=== PATIENT | male | born 1960 | race Caucasian/White ===

== ENCOUNTER 2018-12-23 09:20 | Inpatient (IN) ==
--- NOTE | 2018-12-16 13:34 | Anesthesiology Consultation ---
Date of Service December 16, 2018 Assessment & Plan (1) Encounter for pre-operative examination: Patients surgery will be cancelled at this time because he did not show up for his PCP clearance and he was unable to get it rescheduled. Will be rescheduled at a later date after he is able to get in to see his PCP. Chart Review Chart Review: Patient seen in Pre Admission Testing Consults Requested medical (Dr. Victor (12/13)) Teaching & Discussion Pre-Anesthesia Teaching/Discussion Notes: Instructed NPO after midnight before surgery, except medications with 15 cc of water. Medication instructions provided according to the PAT guidelines. History Surgery Operation Date: 12/23/18 10:10 Proposed Procedures p Right Posterior Total Hip Arthroplasty - Joe Anaya DO Height/Weight Height: 5 ft 2 in Weight: 82.1 kg Allergies Allergy/AdvReac Type Severity Reaction Status Date / Time No Known Allergies Allergy Verified 12/12/18 12:21 Medications Home Medications Medication Instructions Recorded Confirmed Last Taken aspirin 81 mg PO QAM 12/12/18 12/12/18 Unknown atorvastatin 10 mg PO PM 12/12/18 12/12/18 Unknown ferrous sulfate [iron] 325 mg PO QAM 12/12/18 12/12/18 Unknown fluoxetine 40 mg PO QPM 12/12/18 12/12/18 Unknown levothyroxine [Synthroid] 25 mcg PO QAM 12/12/18 12/12/18 Unknown meloxicam 15 mg PO QAM 12/12/18 12/12/18 Unknown metoprolol succinate 100 mg PO QAM 12/12/18 12/12/18 Unknown multivitamin 1 tab PO QAM 12/12/18 12/12/18 Unknown omeprazole 40 mg PO QAM 12/12/18 12/12/18 Unknown Past Medical History Medical History Depression GERD (gastroesophageal reflux disease) History of pancreatitis History of torsion of testis Hyperlipidemia Hypertension Hypothyroidism Mild cerebral palsy Osteoarthritis Past Surgical History Surgical History H/O unilateral orchiectomy History of colonoscopy W/ POLYPECTOMY History of tonsillectomy Past Anesthesia History No Hx of Anesthesia Complications and No Family Hx of Anesthesia Complications History of PONV No Motion Sickness Screening History of Motion Sickness: No Social History Smoking Status: Never smoker Do You Dip or Chew Tobacco: No Hx Alcohol Use: No Hx Substance Use: No substance use type: does not use Exercise / Class Metabolic Activity II 4-5 Yardwork/Stairs/Walk up hill (Able to climb FOS (at least once a day). Denies CP or SOB. ) Review of Systems Patient denies chest pain, shortness of breath, dyspnea on exertion, cough, wheezing, palpitations. +Joint pain (hip) +acid reflux (controlled with medication) Physical Exam Vital Signs BP: 137/85 P: 59 R: 18 T: 97.5 SPO2: 96% on RA ENMT Thyromental Distance: < 3.5 Finger Breadths (3) Mallampati Class: II Neck normal visual inspection, trachea midline, + short neck and + thick neck; neck extension not limited Respiratory normal respiratory effort Auscultation: lungs clear to auscultation bilaterally Cardiovascular Rate/Rhythm: regular rate and regular rhythm Heart Sounds: no murmur Vessels: no carotid bruit Neurologic moves all extremities Psychiatric Orientation: alert and oriented x 3 Testing Electrocardiogram Date: 12/16/18 Findings: + SB @ (57) Chest X-Ray Date: 12/16/18 Findings: + NAD FINDINGS: The lungs are clear. Cardiac silhouette is normal in size. No pleural effusions. No pneumothorax. IMPRESSION: No acute process. Stress Test Date: 11/01/17 Type: DSE Resting EF: 55-59% Resting LV Function: normal Resting RWMA: + none Valvular Disease: no significant valvular disease This stress ECHO is negative for inducible ischemia. There is no significant valvular heart disease. The stress EKG response showed no evidence of ischemia. No arrhythmias were noted with stress. Sinus rhythm was noted at rest. ST segments were normal at rest. The test was terminated due to target heart rate being achieved. The HR and BP response to pharmacologic stress was normal. No symptoms were noted. The LV wall thickness is mildly increased (concentric). Laboratory Results 12/16/18 13:17 12/16/18 13:17 Blood Type O Positive 12/16/18 13:17 Antibody Screen NEGATIVE 12/16/18 13:17 PT 10.8 Seconds (9.0-12.0) 12/16/18 13:17 INR 1.1 (0.9-1.1) 12/16/18 13:17 APTT 26.4 Seconds (21.0-31.0) 12/16/18 13:17 Hemoglobin A1c 5.5 % (4.5-5.6) 12/16/18 13:17 Urine Color Yellow 12/16/18 Unknown Urine Appearance Clear (Clear) 12/16/18 Unknown Urine pH 5.0 (4.5-7.5) 12/16/18 Unknown Ur Specific [place] 1.027 (1.000-1.030) 12/16/18 Unknown Urine Protein Negative (Negative) 12/16/18 Unknown Urine Glucose (UA) Negative (Negative) 12/16/18 Unknown Urine Ketones 2+ (Negative) H 12/16/18 Unknown Urine Nitrite Negative (Negative) 12/16/18 Unknown Ur Leukocyte Esterase Negative (Negative) 12/16/18 Unknown 12/16/18 Unknown Urine Culture - Final Urine,Clean Catch Three types or organisms present, all moderate counts probable skin daria. No further identifications or sensitivities to follow.
--- NOTE | 2018-12-16 13:44 | PAT Medication Instructions ---
Medication Instructions Date of Service December 16, 2018 Home Medications aspirin 81 mg PO QAM atorvastatin 10 mg PO PM ferrous sulfate [iron] 325 mg PO QAM fluoxetine 40 mg PO QPM levothyroxine [Synthroid] 25 mcg PO QAM meloxicam 15 mg PO QAM metoprolol succinate 100 mg PO QAM multivitamin 1 tab PO QAM omeprazole 40 mg PO QAM ASK your surgeon for instructions meloxicam 15 mg PO QAM DO NOT take the morning of surgery ferrous sulfate [iron] 325 mg PO QAM multivitamin 1 tab PO QAM Take morning of surgery With a small sip of water, OTHERWISE NOTHING TO EAT OR DRINK AFTER MIDNIGHT: aspirin 81 mg PO QAM levothyroxine [Synthroid] 25 mcg PO QAM metoprolol succinate 100 mg PO QAM omeprazole 40 mg PO QAM Take evening before surgery atorvastatin 10 mg PO PM fluoxetine 40 mg PO QPM Other Notes If you have any questions please call us at [phone] or [phone] or [phone] or [phone]
[2018-12-16 14:23] LABS: Basophils # (auto) 0.02 K/uL (0-0.2); Basophils % (auto) 0.2 %; Eosinophils # (auto) 0.24 K/uL (0-0.5); Eosinophils % (auto) 2.9 %; Hematocrit (blood only) 46.4 % (42-52); Hemoglobin 15.2 g/dL (14.0-18.0); Immature Granulocytes # (auto) 0.01 K/uL (0.00-0.02); Immature Granulocytes % (auto) 0.1 %; Lymphocytes # (auto) 1.14 K/uL (1.2-3.4); Lymphocytes % (auto) 13.5 %; Mean Corpuscular Hgb Conc 32.8 g/dL (32-36); Mean Corpuscular Volume 88.5 fL (80-100); Mean Platelet Volume 9.8 fL (7.4-10.4); Monocytes # (auto) 0.82 K/uL (0.11-0.59); Monocytes % (auto) 9.7 %; Neutrophils # (auto) 6.19 K/uL (1.4-6.5); Neutrophils % (auto) 73.6 %; Platelet Count 266 K/uL (130-400); RDW Coefficient of Variation 14.8 % (11.5-14.5); RDW Standard Deviation 47.7 fL (36.4-46.3); Red Blood Count 5.24 M/uL (4.7-6.1); White Blood Count 8.42 K/uL (4.8-10.8)
--- NOTE | 2018-12-16 14:30 | XRay Report ---
XR chest Pre-admission PA/Lat HISTORY: Preop. COMPARISON: None. FINDINGS: The lungs are clear. Cardiac silhouette is normal in size. No pleural effusions. No pneumot horax. IMPRESSION: No acute process. Electronically signed by: Dominick Stevens M.D. 12/16/2018 2:29 PM
[2018-12-16 14:32] LABS: Albumin Level 3.5 gm/dl (3.4-5.0); BUN Creatinine Ratio 26.5 (10-20); Calcium 9.3 mg/dl (8.5-10.1); Creatinine Clr Calc Pharmacy 111.2 ml/min; Est GFR (African American) 122.9; Potassium 3.7 mmol/L (3.5-5.1)
[2018-12-16 14:41] LABS: Appearance Urine Clear (Clear); Bilirubin Urine Negative (Negative); Blood Urine Negative (Negative); Color Urine Yellow; Glucose Urine UA Negative (Negative); Ketones Urine 2+ (Negative); Leukocyte Esterase Urine Negative (Negative); Nitrite Urine Negative (Negative); Protein Urine Negative (Negative); Specific Gravity Urine 1.027 (1.000-1.030); Urobilinogen Urine Negative (Negative)
[2018-12-16 14:43] LABS: INR 1.1 (0.9-1.1); Partial Thromboplastin Time 26.4 Seconds (21.0-31.0); Prothrombin Time 10.8 Seconds (9.0-12.0)
[2018-12-17 05:50] LABS: Estimated Average Glucose 111 mg/dl; Hemoglobin A1C 5.5 % (4.5-5.6)
--- NOTE | 2018-12-22 13:22 | History & Physical Report ---
Date of Service December 22, 2018 Assessment & Plan (1) Degenerative joint disease (DJD) of hip: I have indicated the patient for right posterior total hip replacement. The risks, benefits and complications of surgery were explained to the patient which include but not limited to infection, acute blood loss, DVT/PE, injury to nerves, vessels, bone, soft tissue, arthrofibrosis, chronic pain, failure of the prosthesis, hip dislocation, leg length discrepancy, need for additional surgery, cardiac and pulmonary events and . The patient wished to proceed with surgery and informed consent was obtained at this time. We will plan for ASA BID post-operatively for DVT prophylaxis. Upon discharge the patient will be discharged home with home health services vs SNF. Appropriate clearances by PCP were obtained. History of Present Illness Chief Complaint: Right hip pain/djd Primary Care Provider: Álvaro Victor DO The patient is a 58 year old male who presents with complaints of severe right hip pain and DJD. The patient has failed outpatient conservative treatments to this point which included NSAIDS, PT, home exercise/walking program. The patient's pain and limited function have progressed to the point where they severely hinder their activities of daily living and they no longer tolerate exercise programs. They are requesting to proceed with total hip replacement surgery. Allergies Allergy/AdvReac Type Severity Reaction Status Date / Time No Known Allergies Allergy Verified 12/23/18 10:04 Home Medications Home Medications Medication Instructions Recorded Confirmed Type aspirin 81 mg PO QAM 12/12/18 12/23/18 History atorvastatin 10 mg PO PM 12/12/18 12/23/18 History ferrous sulfate [iron] 325 mg PO QAM 12/12/18 12/23/18 History fluoxetine 40 mg PO QPM 12/12/18 12/23/18 History levothyroxine [Synthroid] 25 mcg PO QAM 12/12/18 12/23/18 History meloxicam 15 mg PO QAM 12/12/18 12/23/18 History metoprolol succinate 100 mg PO QAM 12/12/18 12/23/18 History multivitamin 1 tab PO QAM 12/12/18 12/23/18 History omeprazole 40 mg PO QAM 12/12/18 12/23/18 History Past Med/Surg History Medical History Depression GERD (gastroesophageal reflux disease) History of pancreatitis History of torsion of testis Hyperlipidemia Hypertension Hypothyroidism Mild cerebral palsy Osteoarthritis Surgical History H/O unilateral orchiectomy History of colonoscopy W/ POLYPECTOMY History of tonsillectomy Family History Mother Family history of diabetes mellitus Sister Family history of diabetes mellitus Social History Preferred Language: Japanese Communication Ability: Effective Pumper Helper Required: No Beliefs That Will Affect Care: None Current Living Situation: Alone Other Information That Helps Us Care for You: No Feels Safe at Home: Yes Safety Concerns: Feels Safe At This Time Smoking Status: Never smoker Hx Alcohol Use: No Hx Substance Use: No Review of Systems All systems reviewed & are unremarkable except as noted in HPI & below Physical Exam Physical Exam: RLE NVSI +EHL/FHL/TA/GS SILT grossly, +2 DP pulse, compartments soft NT, limited painful ROM of the hip. Constitutional: WD/WN, vitals as above Eyes: PERRL, conjunctivae normal, anicteric sclerae ENMT: external ear and nose normal, oropharynx normal Neck: trachea midline, no thyromegaly Respiratory: normal respiratory effort, lungs clear to auscultation Cardiovascular: RRR, no murmur, no edema Gastrointestinal (Abdomen): normal bowel sounds, soft, nontender, no hepatosplenomegaly Musculoskeletal: no cyanosis or clubbing, extremities motor strength 5/5 Skin: no rashes, warm and dry Neurologic: patellar DTR's 2+ bilat, sensation intact Psychiatric: A+Ox3, euthymic affect Lymphatic: no cervical or axillary lymphadenopathy Results & Data Diagnostic Findings Multiple views of the hip demonstrates severe DJD with complete loss of the joint space, lateral subluxation of the femoral head. +osteophytes, +sclerosis, +subchondral cysts.
[~2018-12-23 09:20] MED LIST: ACETAMINOPHEN 500 MG TAB PO SCH; BUPIVACAINE 0.5 % 5 MG/1 ML PF 10ML VIAL ONE; CEFAZOLIN 2000MG 2,000 MG/15 ML SYR IV SCH; CeleBREX 200 MG CAP PO SCH; FAMOTIDINE 20 MG TAB PO SCH; GABAPENTIN 300 MG PO SCH; ROPIVACAINE 0.5% HCL/PF 150 MG, BUPIVACAINE 0.5% MPF 30 ML, EPINEPHrine 30MG/30ML (OR U... INFIL SCH; TRANEXAMIC ACID 1,000 MG **IV Intra-op IV SCH; TRANEXAMIC ACID 1,000 MG **IV Pre-op IV SCH; dexAMETHasone 4 MG TAB PO SCH
[2018-12-23] MEDS ORDERED: MIDAZOLAM HCL 1 MG/ML 2ML VIAL ONE (09:30)
[2018-12-23] MEDS: LACTATED RINGER'S 1,000 ML IV SCH ×2 (10:08→13:58)
[2018-12-23] MEDS ORDERED: ORTHO JOINT ANESTHETIC ONE (10:11)
[2018-12-23] MEDS ORDERED: BACITRACIN INJ 50,000 UNIT VIAL ONE (10:11)
[2018-12-23] MEDS ORDERED: POVIDONE-IODINE OP SOLN 30 ML BTL ONE (10:11)
--- NOTE | 2018-12-23 10:15 | History & Physical Bridge Note ---
Date of Service December 23, 2018 History & Physical Bridge Note I have examined the patient, reviewed the History & Physical and in the interval since the performance of the History & Physical I have noted the following changes of clinical significance: no changes noted
[2018-12-23] MEDS ORDERED: FAMOTIDINE 20 MG TAB ONE (10:19)
[2018-12-23] MEDS ORDERED: ACETAMINOPHEN 500 MG TAB ONE (10:19)
[2018-12-23] MEDS ORDERED: CeleBREX 200 MG CAP ONE (10:19)
[2018-12-23] MEDS ORDERED: dexAMETHasone 4 MG TAB PO ONE (10:19)
[2018-12-23] MEDS ORDERED: GABAPENTIN 300 MG CAP ONE (10:19)
[2018-12-23] MEDS ORDERED: HYDROmorphone INJ 1 MG/ML SYRINGE IV PRN (10:24)
[2018-12-23] MEDS ORDERED: PHENYLEPHRINE 100MCG/ML 5ML SYR IV PRN (10:24)
[2018-12-23] MEDS ORDERED: KETOROLAC 30 MG/ML VIAL IV PRN (10:24)
[2018-12-23] MEDS ORDERED: ePHEDrine sulfate 50 MG/ML AMP IV PRN (10:24)
[2018-12-23] MEDS ORDERED: ONDANSETRON INJ 2 MG/ML 2 ML VIAL IV PRN ×2 (10:24→14:09)
[2018-12-23] MEDS ORDERED: ATROPINE SULFATE 0.1 MG/ML 10ML SYR IV PRN (10:24)
[2018-12-23] MEDS ORDERED: fentaNYL citrate 100 MCG/2 ML VIAL ONE (11:34)
[2018-12-23] MEDS ORDERED: SODIUM CHLORIDE 0.9% INJ 10 ML VIAL ONE (11:37)
[2018-12-23] MEDS ORDERED: LIDOCAINE HCL 2% 2 ML VIAL/AMP(20MG/ML) INFIL ONE (11:37)
[2018-12-23] MEDS ORDERED: PROPOFOL IV EMULSION 10 MG/ML 20 ML VIAL IV ONE (11:37)
[2018-12-23] MEDS ORDERED: PHENYLEPHRINE HCL 10 MG/ML VIAL ONE (11:37)
[2018-12-23] MEDS ORDERED: ePHEDrine sulfate 50 MG/ML AMP ONE (11:37)
--- NOTE | 2018-12-23 12:45 | Post Operative Brief Note ---
Immediate Post Op Note v1 Date of Surgery December 23, 2018 Pre & Post Diagnosis Operation Date: 12/23/18 09:50 Pre-Op Diagnosis: Degenerative joint disease right hip Post-Op Diagnosis: Degenerative joint disease right hip Procedure Operation Date: 12/23/18 09:50 Actual Procedures p Right Posterior Total Hip Arthroplasty(Right) - Joe Anaya DO Surgeon Joe Anaya DO Knockup Worker Simone Bill Estimated Blood Loss 100 Findings Consistent with Post-Op Diagnosis Fluids 1500 cc LR Specimens femoral head Anesthesia Type Spinal MAC Complications none Disposition Disposition: Recovery Room Overlapping Procedure I was present for: the critical portions of procedure. I was immediately available: during the entire case. Back up surgeon: was not required during procedure.
--- NOTE | 2018-12-23 12:57 | Operative Report ---
Post Operative Report Pre & Post Diagnosis Operation Date: 12/23/18 09:50 Pre-Op Diagnosis: Degenerative joint disease right hip Post-Op Diagnosis: Degenerative joint disease right hip Procedure Operation Date: 12/23/18 09:50 Actual Procedures p Right Posterior Total Hip Arthroplasty(Right) - Joe Anaya DO Surgeon Joe Anaya DO Rn Transfer Simone Bill Estimated Blood Loss 100 Findings Consistent with Post-Op Diagnosis Fluids 1500 cc LR Specimens femoral head Anesthesia Type Spinal MAC Complications none Disposition Disposition: Recovery Room Indications The patient is a 58-year-old male who presents with severe progressive right hip DJD who has failed outpatient conservative treatments. I indicated the patient for a total hip replacement and the risks and benefits were explained in detail which included but not limited to infection, bleeding, blood clot, damage to surrounding bone, nerves, vessels, soft tissue, hip dislocation, failure of the prosthesis, leg length discrepancy, need for additional surgery and . The patient agreed to proceed with replacement of the hip and informed consent was obtained. Appropriate clearances were obtained. Description of Procedure Following induction of adequate spinal anesthesia, the patient was transferred to the OR table and placed in lateral decubitus position with left hip down. The right hip was prepped and draped in the typical sterile fashion and a posterolateral/Gilberto-Langenbeck incision was made. Subcutaneous tissue was sharply dissected. Electrocautery was utilized for hemostasis. The fascia was incised throughout the length of the wound and retracted with the Charnley retractor. The bursa was taken down and the short external rotators were identified. The piriformis was tagged with #1 Vicryl. The short external rotators and capsule were divided from the posterior aspect of the femur using electrocautery. The posterior capsule was tagged with #1 Vicryl. Both external rotators and posterior capsule were swept posterior and protected, along with protecting the sciatic nerve. The hip was dislocated by flexion and internally rotation in a controlled manner and exposure of the femoral neck was gained with an old-style Hohmann and a blunt cobra retractor. A femoral cutting guide was utilized for making the appropriate level femoral neck cut with reciprocating saw. The femoral head was removed, measured and reserved on the back table. Next, attention was turned to the acetabulum. A posterior and anterior offset retractor was placed to gain adequate exposure. Acetabular labrum as well as posterior capsule elements were removed using electrocautery and forceps. Fovea centralis was cleared of all soft tissue. Sequential reaming was performed starting at 44 mm and carried up to a 49 mm and decision was made to proceed with impaction of a 50 mm trabecular metal cup. This was impacted and held using a single 35 mm bone screw. The trial acetabular liner was placed at this time. Next, attention was turned to the proximal femur where a Bovie and pickup was used to further clear short external rotators from their insertion on the femur. Box osteotome and canal finder was used to gain access to the femoral canal and the lateral reamer on power was used to further open the proximal lateral canal. Sequentially rasping was carried up to a 9 which gave good fit and fill of the proximal femur. A trial reduction was carried out with a high offset femoral neck component a 36- 3.5 mm femoral head. The trial reduction was stable in all degrees of rotation with no [id number] impingement. The hip was dislocated, trial components were removed and access to the acetabulum was re-established. The trial liner was removed and the cup was irrigated to ensure all debris was removed. The final acetabular liner was inserted and properly seated in the cup. Access to the femur was once more gained and the size 9 femoral stem with high offset was impacted into position. The hip was once more assessed with the 36-3.5 mm femoral head. Stability was accessed and found to be excellent with equal leg lengths. The hip was dislocated for the last time and the final 36-3.5 ceramic femoral head was impacted in place and the hip was reduced. Range of motion was checked once again and found to be stable. The wound was copiously irrigated with sterile saline solution. The heidi-incisional soft tissue was injected utilizing [place] ortho mix which includes a combination of Ropivicaine 0.5% 150mg, Bupivicaine 0.5%/Epinephrine 1:200,000 30ml, Toradol 30mg, Dexamethasone 4mg, Ketamine 10mg, Clonidine 100mcg and NSS 30ml Orthomix solution. The piriformis, external rotators and capsule were repaired to the greater trochanter through bone tunnels using #5 FiberWire. The fascia was closed using #1 Vicryl, subcutaneous tissue was closed using 2-0 Vicryl, and skin was closed with 3-0 V-lock suture and Dermabond Prineo. Sterile dressings were applied which included katya, 4x4s and tegaderm adhesive dressing. The patient tolerated the procedure well and was transported to PACU in stable condition. Due to the complex nature of the procedure, the entire surgery was performed with the operational assistance of Simone Bill PA-C. The yard assistant, under direct supervision, was involved in the actual performance of all aspects of the surgical procedure including patient positioning, hemostasis, tissue retraction, instrument management and wound closure. I attest to the content of the Intraoperative Record and any orders documented therein. Any exceptions are noted below.
--- NOTE | 2018-12-23 13:44 | XRay Report ---
XR hip 1V RT w pelvis CLINICAL HISTORY: Postop hip arthroplasty COMPARISON: None. DISCUSSION: There are postsurgical changes of a total right hip arthroplasty. The acetabular and femo ral components appear well seated. There is aortic the soft tissues consistent with recent surgery. T here are overlying skin queta. There is no acute fracture. There is no dislocation. Mild osteoarthr itic changes are present on the left. IMPRESSION: Postsurgical changes of a total right hip arthroplasty. No evidence of dislocation. Electronically signed by: Carlos Novak M.D. 12/23/2018 1:43 PM
--- NOTE | 2018-12-23 13:51 | Anesthesiology Progress Note ---
Date of Service December 23, 2018 Anesthesia Post Procedure Vital Signs Vital Signs: Temp Pulse Pulse Resp BP Pulse Ox 12/23/18 13:45 76 19 119/77 98 12/23/18 13:35 67 20 97/52 L 97 12/23/18 13:25 69 18 100/50 L 95 12/23/18 13:15 78 20 109/69 96 12/23/18 13:09 36.5 C 65 15 119/73 98 12/23/18 10:06 36.5 C 70 20 150/91 H 96 Pain Intensity Right Hip: Pain Intensity: 0 Notes Mental Status: alert / awake / arousable Patient Amnestic to Procedure: Yes Nausea / Vomiting: adequately controlled Pain: adequately controlled Airway Patency, RR, SpO2: stable & adequate BP & HR: stable & adequate Hydration State: stable & adequate Neuraxial Anesthesia: was administered and sensory block is resolving Anesthetic Complications: no major complications apparent
--- NOTE | 2018-12-23 13:58 | Orthopedic Progress Note ---
Date of Service December 23, 2018 Assessment & Plan (1) Degenerative joint disease (DJD) of hip: s/p R posterior DANIA -ancef x 24 -DVT ppx: ASA BID, SCDs, TEDS -WBAT RLE -Posterior hip precautions -PO XR: Multiple views of the right hip demonstrate a well aligned well fixed orthopedic prosthesis without evidence of loosening, subsidence fracture or dislocation. -A.m. labs -DC planning SNF Subjective Postoperative progress note Patient seen in PACU, laying comfortably, denies pain, still feeling the effects of spinal anesthesia. Physical Exam Vital Signs (Past 24 Hours): Last Vital Signs Temp 36.5 C 12/23/18 13:09 Pulse 76 12/23/18 13:45 Resp 19 12/23/18 13:45 BP 119/77 12/23/18 13:45 Pulse Ox 98 12/23/18 13:45 Physical Exam: RLE physical exam is limited secondary to spinal anesthesia, +2 dorsalis pedis pulse, compartment soft nontender, dressing is clean dry and intact. Constitutional: WD/WN, vitals as above Eyes: PERRL, conjunctivae normal, anicteric sclerae ENMT: external ear and nose normal, oropharynx normal Neck: trachea midline, no thyromegaly Respiratory: normal respiratory effort, lungs clear to auscultation Cardiovascular: RRR, no murmur, no edema Gastrointestinal (Abdomen): normal bowel sounds, soft, nontender, no hepatosplenomegaly Skin: no rashes, warm and dry Psychiatric: A+Ox3, euthymic affect Lymphatic: no cervical or axillary lymphadenopathy
[2018-12-23] MEDS ORDERED: MAGNESIUM HYDROXIDE SUSP 30 ML UDC PO PRN (14:09)
[2018-12-23] MEDS ORDERED: NALOXONE HCL 0.4 MG/1 ML VIAL/CARP IV PRN (14:09)
[2018-12-23] MEDS ORDERED: BISACODYL 10 MG SUPP PR PRN (14:09)
[2018-12-23] MEDS ORDERED: METOCLOPRAMIDE HCL INJ 5 MG/ML 2 ML VIAL IV PRN (14:09)
[2018-12-23] MEDS ORDERED: OXYCODONE HCL IR 5 MG TAB (IMMEDIATE RELEASE) PO PRN (14:09)
[2018-12-23] MEDS ORDERED: HYDROmorphone INJ 0.5 MG/0.5 ML SYR IV PRN (14:09)
[2018-12-23] MEDS: SODIUM CHLORIDE 0.9% 1000ML 1,000 ML IV SCH ×2 (14:36→23:45)
[2018-12-23] MEDS: KETOROLAC 30 MG/ML VIAL IV SCH ×2 (14:38→21:32)
[2018-12-23] MEDS: CEFAZOLIN 2000MG 2,000 MG/15 ML SYR IV SCH ×2 (16:02→22:40)
[2018-12-23] MEDS: ACETAMINOPHEN 500 MG TAB PO SCH ×2 (16:02→22:40)
[2018-12-23] MEDS: ASPIRIN 325 MG ECTAB PO SCH (21:32)
[2018-12-23] MEDS: FLUOXETINE HCL 20 MG CAP PO SCH (21:32)
[2018-12-23] MEDS: ATORVASTATIN 10 MG TAB PO SCH (21:32)
[2018-12-23] MEDS: SENNA 8.6 MG TAB PO SCH (21:33)
[2018-12-23] MEDS: DOCUSATE SODIUM 100 MG CAP PO SCH (21:37)
[2018-12-24] MEDS: KETOROLAC 30 MG/ML VIAL IV SCH ×2 (02:53→08:28)
[2018-12-24] MEDS: ACETAMINOPHEN 500 MG TAB PO SCH ×3 (05:46→20:40)
[2018-12-24] MEDS: LEVOTHYROXINE SODIUM 25 MCG TABLET PO SCH (05:47)
[2018-12-24 07:04] LABS: Basophils # (auto) 0.01 K/uL (0-0.2); Basophils % (auto) 0.1 %; Hematocrit (blood only) 37.9 % (42-52); Hemoglobin 12.4 g/dL (14.0-18.0); Immature Granulocytes # (auto) 0.04 K/uL (0.00-0.02); Immature Granulocytes % (auto) 0.2 %; Lymphocytes # (auto) 1.39 K/uL (1.2-3.4); Lymphocytes % (auto) 7.8 %; Mean Corpuscular Hgb Conc 32.7 g/dL (32-36); Mean Corpuscular Volume 87.7 fL (80-100); Mean Platelet Volume 9.3 fL (7.4-10.4); Monocytes # (auto) 0.76 K/uL (0.11-0.59); Monocytes % (auto) 4.3 %; Neutrophils # (auto) 15.51 K/uL (1.4-6.5); Neutrophils % (auto) 87.6 %; Platelet Count 251 K/uL (130-400); RDW Coefficient of Variation 14.5 % (11.5-14.5); RDW Standard Deviation 46.5 fL (36.4-46.3); Red Blood Count 4.32 M/uL (4.7-6.1); White Blood Count 17.71 K/uL (4.8-10.8)
[2018-12-24 07:37] LABS: Calcium 8.3 mg/dl (8.5-10.1); Creatinine Clr Calc Pharmacy 94.5 ml/min; Est GFR (African American) 115.5; Est GFR (Non-African American) 99.7
--- NOTE | 2018-12-24 08:07 | Anesthesiology Progress Note ---
Date of Service December 24, 2018 Anesthesia Post Procedure Vital Signs Vital Signs: Temp Pulse Pulse Pulse Resp BP Pulse Ox 12/24/18 06:55 36.4 C L 53 L 16 122/80 98 12/24/18 03:20 36.4 C L 67 16 126/74 94 12/23/18 23:46 36.4 C L 79 18 124/81 95 12/23/18 19:33 36.8 C 99 H 18 130/84 95 12/23/18 17:10 36.3 C L 104 H 16 132/83 95 12/23/18 16:10 36.5 C 88 17 139/90 94 12/23/18 14:39 59 L 18 114/60 93 12/23/18 14:35 71 18 132/86 95 12/23/18 14:09 36.5 C 67 67 16 120/76 96 12/23/18 13:55 76 20 114/65 96 12/23/18 13:45 76 19 119/77 98 12/23/18 13:35 67 20 97/52 L 97 12/23/18 13:25 69 18 100/50 L 95 12/23/18 13:15 78 20 109/69 96 12/23/18 13:09 36.5 C 65 15 119/73 98 12/23/18 10:06 36.5 C 70 20 150/91 H 96 Pain Intensity Right Hip: Pain Intensity: 0 Notes Mental Status: alert / awake / arousable Nausea / Vomiting: adequately controlled Pain: adequately controlled Airway Patency, RR, SpO2: stable & adequate BP & HR: stable & adequate Hydration State: stable & adequate Neuraxial Anesthesia: was administered and sensory block resolved Anesthetic Complications: no major complications apparent and Pt Satisfied with anesthetic care
[2018-12-24] MEDS: FERROUS SULFATE 325 MG TAB PO SCH (08:27)
[2018-12-24] MEDS: MULTIVITAMIN TAB PO SCH (08:27)
[2018-12-24] MEDS: ASPIRIN 325 MG ECTAB PO SCH ×2 (08:27→20:36)
[2018-12-24] MEDS: METOPROLOL SUCC 50MG EXT REL TAB PO SCH (08:27)
[2018-12-24] MEDS: DOCUSATE SODIUM 100 MG CAP PO SCH ×2 (08:37→20:39)
[2018-12-24] MEDS ORDERED: CALCIUM CARBONATE 500 MG CHEWABLE TAB PO PRN (10:10)
--- NOTE | 2018-12-24 10:45 | Orthopedic Progress Note ---
Date of Service December 24, 2018 Assessment & Plan (1) Degenerative joint disease (DJD) of hip: s/p R posterior DANIA POD#2 -ancef x 24 -DVT ppx: ASA BID, SCDs, TEDS -WBAT RLE -Posterior hip precautions -PO XR: Multiple views of the right hip demonstrate a well aligned well fixed orthopedic prosthesis without evidence of loosening, subsidence fracture or dislocation. -A.m. labs hgb 12.4 -DC planning SNF Subjective Post Operative Progress Note Patient seen sitting in chair, comfortable, denies complaints, pain well controlled, no acute issues. Physical Exam Vital Signs (Past 24 Hours): Last Vital Signs Temp 36.4 C L 12/24/18 06:55 Pulse 65 12/24/18 08:30 Resp 16 12/24/18 06:55 BP 122/80 12/24/18 06:55 Pulse Ox 98 12/24/18 06:55 Physical Exam: RLE NVSI +EHL/FHL/TA/GS SILT grossly, +2 DP pulse, compartments soft NT, dressing cdi. Constitutional: WD/WN, vitals as above
[2018-12-24] MEDS: PANTOprazole 40 MG TAB PO SCH ×2 (10:46→20:36)
[2018-12-24] MEDS: LACTATED RINGER'S 1,000 ML IV SCH (11:16)
[2018-12-24] MEDS: CeleBREX 200 MG CAP PO SCH (20:35)
[2018-12-24] MEDS: ATORVASTATIN 10 MG TAB PO SCH (20:36)
[2018-12-24] MEDS: FLUOXETINE HCL 20 MG CAP PO SCH (20:36)
[2018-12-24] MEDS: SENNA 8.6 MG TAB PO SCH (20:37)
[2018-12-25] MEDS: LEVOTHYROXINE SODIUM 25 MCG TABLET PO SCH (05:49)
[2018-12-25] MEDS: ACETAMINOPHEN 500 MG TAB PO SCH ×2 (05:49→14:36)
[2018-12-25 07:58] LABS: Basophils # (auto) 0.03 K/uL (0-0.2); Basophils % (auto) 0.2 %; Eosinophils # (auto) 0.24 K/uL (0-0.5); Eosinophils % (auto) 1.7 %; Hematocrit (blood only) 40.6 % (42-52); Hemoglobin 13.3 g/dL (14.0-18.0); Immature Granulocytes # (auto) 0.04 K/uL (0.00-0.02); Immature Granulocytes % (auto) 0.3 %; Lymphocytes # (auto) 1.54 K/uL (1.2-3.4); Lymphocytes % (auto) 11.1 %; Mean Corpuscular Hgb Conc 32.8 g/dL (32-36); Mean Platelet Volume 9.3 fL (7.4-10.4); Monocytes # (auto) 1.22 K/uL (0.11-0.59); Monocytes % (auto) 8.8 %; Neutrophils # (auto) 10.78 K/uL (1.4-6.5); Neutrophils % (auto) 77.9 %; Platelet Count 285 K/uL (130-400); RDW Standard Deviation 48.9 fL (36.4-46.3); Red Blood Count 4.56 M/uL (4.7-6.1); White Blood Count 13.85 K/uL (4.8-10.8)
[2018-12-25] MEDS: FERROUS SULFATE 325 MG TAB PO SCH (07:58)
[2018-12-25] MEDS: PANTOprazole 40 MG TAB PO SCH (07:58)
[2018-12-25] MEDS: MULTIVITAMIN TAB PO SCH (07:58)
[2018-12-25] MEDS: METOPROLOL SUCC 50MG EXT REL TAB PO SCH (07:58)
[2018-12-25] MEDS: DOCUSATE SODIUM 100 MG CAP PO SCH (07:59)
[2018-12-25] MEDS: ASPIRIN 325 MG ECTAB PO SCH (07:59)
[2018-12-25] MEDS: CeleBREX 200 MG CAP PO SCH (07:59)
[2018-12-25 08:31] LABS: BUN Creatinine Ratio 17.4 (10-20); Calcium 8.6 mg/dl (8.5-10.1); Creatinine Clr Calc Pharmacy 88.8 ml/min; Est GFR (African American) 112.7; Est GFR (Non-African American) 97.2; Potassium 3.6 mmol/L (3.5-5.1)
--- NOTE | 2018-12-25 08:43 | Progress Note ---
DATE: 12/25/2018 SUBJECTIVE: The patient is postop day 2 status post right total hip arthroplasty by Dr. Anaya. He is currently sitting up in his chair at the bedside and had just finished eating breakfast. The patient is in good spirits and has good pain control today. He states that he has a small amount of pain last night; however, that has resolved and he is doing well. He denies any shortness of breath, chest pain, lightheadedness and has no complaints at this time. OBJECTIVE: Prevena dressing is clean, dry and intact and functioning well. There is no overt drainage noted. There is some mild bruising around the dressing area consistent with surgery. Thigh is mildly swollen, but soft and nontender. Calves were soft, nontender. Neurovascular is intact. Toes were mobile. Hip appears located. Hgb 13.3 ASSESSMENT: Postop day 2 status post right total hip arthroplasty. PLAN: Continue PT, OT protocols. Continue DVT prophylaxis with aspirin b.i.d., SCDs and LAUREEN hose and continue current pain regimen. The patient is being slated for a rehab facility versus [facility] facility and we will wait to hear on authorization from case management. SAMANTHA
--- NOTE | 2018-12-25 12:00 | Orthopedic Progress Note ---
Date of Service December 25, 2018 Assessment & Plan (1) Degenerative joint disease (DJD) of hip: s/p R posterior DANIA POD#2 -ancef x 24 -DVT ppx: ASA BID, SCDs, TEDS -WBAT RLE -Posterior hip precautions -PO XR: Multiple views of the right hip demonstrate a well aligned well fixed orthopedic prosthesis without evidence of loosening, subsidence fracture or dislocation. -A.m. labs hgb 13.3 -DC planning SNF today vs tomorrow pending approval. Subjective Post Operative Progress Note Patient seen sitting in chair, comfortable, denies complaints, pain well controlled, no acute issues. Physical Exam Vital Signs (Past 24 Hours): Last Vital Signs Temp 36.5 C 12/25/18 05:38 Pulse 72 12/25/18 05:38 Resp 22 12/25/18 05:38 BP 136/74 12/25/18 05:38 Pulse Ox 98 12/25/18 05:38 Physical Exam: RLE NVSI +EHL/FHL/TA/GS SILT grossly, +2 DP pulse, compartments soft NT, dressing cdi. Constitutional: WD/WN, vitals as above Eyes: PERRL, conjunctivae normal, anicteric sclerae ENMT: external ear and nose normal, oropharynx normal Neck: trachea midline, no thyromegaly Respiratory: normal respiratory effort, lungs clear to auscultation Cardiovascular: RRR, no murmur, no edema Gastrointestinal (Abdomen): normal bowel sounds, soft, nontender, no hepatosplenomegaly Musculoskeletal: no cyanosis or clubbing, extremities motor strength 5/5 Skin: no rashes, warm and dry Neurologic: patellar DTR's 2+ bilat, sensation intact Psychiatric: A+Ox3, euthymic affect Lymphatic: no cervical or axillary lymphadenopathy
--- NOTE | 2018-12-25 22:41 | Discharge Summary ---
Date of Service December 25, 2018 Admission HPI Per Admitting Provider The patient is a 58 year old male who presents with complaints of severe right hip pain and DJD. The patient has failed outpatient conservative treatments to this point which included NSAIDS, PT, home exercise/walking program. The patient's pain and limited function have progressed to the point where they severely hinder their activities of daily living and they no longer tolerate exercise programs. They are requesting to proceed with total hip replacement surgery. Principal Diagnosis Right total hip replacement Discharge Exam RLE NVSI +EHL/FHL/TA/GS SILT grossly, +2 DP pulse, compartments soft NT, dressing cdi. Constitutional WD/WN, vitals as above Eyes PERRL, conjunctivae normal, anicteric sclerae ENMT external ear and nose normal, oropharynx normal Neck trachea midline, no thyromegaly Respiratory normal respiratory effort, lungs clear to auscultation Cardiovascular RRR, no murmur, no edema Gastrointestinal (Abdomen) normal bowel sounds, soft, nontender, no hepatosplenomegaly Musculoskeletal no cyanosis or clubbing, extremities motor strength 5/5 Skin no rashes, warm and dry Neurologic patellar DTR's 2+ bilat, sensation intact Psychiatric A+Ox3, euthymic affect Lymphatic no cervical or axillary lymphadenopathy Discharge Data Allergies Allergy/AdvReac Type Severity Reaction Status Date / Time No Known Allergies Allergy Verified 12/23/18 10:04 Consultations 12/24/18 08:00 Consult Case Management - Discharge Planning Routine Procedures Performed Operation Date: 12/23/18 09:50 Actual Procedures p Right Posterior Total Hip Arthroplasty(Right) - Joe Anaya DO [facility] Course (1) Degenerative joint disease (DJD) of hip: The patient is a 58 -year-old male who presents with long standing history of severe right hip DJD and failed outpatient conservative treatments including NSAIDs, bracing, injections and home walking/exercise program. The patient's symptoms have progressed to the point where it has been difficult to perform even normal activities of daily living. I indicated the patient for a right total hip arthroplasty, the risks, benefits and complications of the procedure include but not limited to infection, bleeding, damage to bone, nerves, vessels, surrounding soft tissue, may develop blood clots, loss of function, leg length discrepancy, dislocation, failure of the components, loosening of the components, the need for additional surgery and . The patient wished to proceed with surgery at this time and informed consent was obtained. Hospital Course: On 3 the patient was taken to the operating room, adequate anesthesia administered and underwent a right total hip arthroplasty. The patient tolerated the procedure well and was taken to the PACU in stable condition. Post-operatively the patient was started on a DVT ppx medication and given appropriate IV antibiotics. Consults were placed to physical therapy, occupa tional therapy and case management. On POD#1, the patient did well overnight and their pain was well controlled. Labs were drawn and the Hgb was 12.4. The patient progressed well with PT. Dressings were changed at this time and the incision was clean, dry and intact. On POD#2, the patient continued to do well and progress with PT. Labs were drawn, hgb 13.3. The patients hospital stay was relatively uneventful and they were deemed stable by the orthopedic team and consultants to be discharged to SNF on 3. Discharge Instructions: Upon discharge the patient may weight bear as tolerates through their operative extremity. They were instructed to keep the incision clean and dry at all times. The patient may shower but should not submerge the incision, avoid bathing, pools and hot tubes. The patient was given a script for pain medication and should take as instructed. The patient was given a script for DVT ppx ASA 325mg BID and should take as directed. The patient was instructed to not drive or travel for long distances until cleared to do so. If the patient develops any symptoms of fevers, chills, nausea, vomiting, increased redness, swelling, pain or drainage from the surgical site, they should notify the office and/or proceed to the nearest emergency room. The patient should follow up in 10-14 days after surgery for their routine post-operative follow-up appointment and should call the office to confirm the date and time. s/p R posterior DANIA POD#2 -ancef x 24 -DVT ppx: ASA BID, SCDs, TEDS -WBAT RLE -Posterior hip precautions -PO XR: Multiple views of the right hip demonstrate a well aligned well fixed orthopedic prosthesis without evidence of loosening, subsidence fracture or dislocation. -A.m. labs hgb 13.3 -DC planning SNF today vs tomorrow pending approval. Total Time Total Time Spent Total Time Spent (In Minutes): >60 minutes Total Time Includes: Examination of the Patient, Discharge Planning, Medication Reconciliation and Communication With Other Providers Discharge Plan Discharge Items Patient Disposition: Transfer Intermediate Fac Reason For Visit: Unilateral Primary Osteoarthritis, Right Hip Discharge Diagnosis: Right total hip replacement Condition: Good Discharge Goals: Decrease discomfort, Improve disease control, Improve function, Increase independence and Specific goals Activity: Per 'Additional Instructions' section Lifting: Wait until after follow-up appointment Bathing Comment: No bathing, pools or hot tubs Sexual Activity: Wait until after follow-up appointment Exercise/Sports: Wait until after follow-up appointment Driving/Machine Use Comment: No driving till your follow up appointment Weightbearing: Right weightbearing Non-emergency contact: Primary Care Provider and Surgeon Call non-emergency contact if: you have any medication questions, your symptoms worsen, your pain is not controlled, your pain is worsening, your pain is unusual for you, your pain is concerning for you, your temperature is above 101, your wound has increased redness, your wound has increased drainage and your wound pain has increased Follow-up/Referrals: Álvaro Victor DO [Primary Care Provider] - Diet: Regular Addtl Provider Instructions: ACTIVITY RECOMMENDATIONS: SELF CARE INSTRUCTIONS AFTER TOTAL HIP REPLACEMENT Until the incision and soft tissues around your hip have healed, there is a possibility that the hip prosthesis could dislocate. A. Observe the following precautions to prevent dislocation: 1. Don't bend your hip greater than 90 degrees. 2. Avoid crossing your legs or ankles while standing or lying. 3. Sit with your feet placed 6 inches apart. 4. When sitting, keep your knees below your hips. Sit on a firm surface, avoid deep, soft chairs and couches. Use an elevated toilet seat in the bathroom. 5. Don't bend over at the waist. Use a long handled shoehorn and a sock aid to help you put on your shoes and socks. A associate accountant can help you oyster picker objects that are too high or too low to reach. 6. Keep car riding to a minimum for at least one month after surgery. B. Your balance may be shaky for a while. Use crutches or a walker until directed by your doctor. C. Use hand rails when walking on stairs. D. Wear low heeled shoes with non-slip soles. E. Be sure that your floors are free of things that could trip you - throw rugs, electrical cords, small objects. Avoid wet and waxed floors, especially with crutches and canes. F. Try to walk several times a day with rest periods between. G. Continue with all the exercises taught to you in the hospital. Again, make walking a part of your daily routine. SPECIAL CARE INSTRUCTIONS: VERY IMPORTANT TO READ AND REVIEW A. You may still be at risk for phlebitis and blood clots. 1. Wear surgical stockings (LAUREEN hose) for 2 weeks after surgery to improve circulation and reduce swelling. 2. Take Aspirin 81mg twice daily for 4 weeks or as directed by your doctor. This is your blood thinner. 3. High risk patients may be prescribed a stronger blood thinner if necessary. 4. If you are on Coumadin normally, your family doctor/supervisor [employer] should monitor your blood work. Expect a phone call the day of or the day after bloodwork is drawn to adjust your dosage. B. You must take antibiotics before having dental work, bladder, bowel and other surgery. Your doctor will provide you with a permanent card to carry describing precautions. C. Call [facility] if you have a fever, redness or swelling around the incision, cloudy drainage from incision, or sudden increase in pain in your hip, not relieved by your regular pain medication. D. Please call the office at if you have any concerns or questions about your operation or recovery. * YOU MAY SHOWER, NO TUB BATHS UNTIL CLEARED BY YOUR DOCTOR. * WEAR LAUREEN HOSE 20 HOURS PER DAY FOR 2 WEEKS. * YOU SHOULD USE A WALKER OR CRUTCHES FOR 2-4 WEEKS. THIS WILL HELP PREVENT STRAIN ON YOUR HIP MUSCLE AND ALLOW IT TO HEAL PROPERLY. YOU MAY WEAN TO A CANE TOLERATED. * MOST PATIENTS WILL HAVE HOME NURSING FOR THERAPY. IF YOU DECIDE TO DO OUTPATIENT PHYSICAL THERAPY, PLEASE SCHEDULE THIS 3 TIMES PER WEEK. * YOU MAY HAVE A LARGE, BAND-TRENA LIKE DRESSING (SILVERON). THIS WILL REMAIN ON YOUR INCISION FOR 7 DAYS, THEN CAN BE REMOVED. IF INCISION IS LEAKING THROUGH DRESSING, PLEASE CALL THE OFFICE . FOLLOW UP VISIT: If appointment is not already scheduled: Please call [facility] to make a follow-up appointment for 2 weeks after your surgery at . Prescriptions: New acetaminophen [Pain Reliever] 500 mg Tablet 1,000 mg PO Q8 PRN (Reason: pain) Qty: 90 RF: 0 aspirin 325 mg Tablet,Delayed Release (Dr/Ec) 325 mg PO BID 28 Days Qty: 56 RF: 0 celecoxib [Celebrex] 200 mg Capsule 200 mg PO BID PRN (Reason: pain) Qty: 28 RF: 0 sennosides [Senokot] 8.6 mg Tablet 17.2 mg PO HS PRN (Reason: constipation) Qty: 28 RF: 0 Continued multivitamin Tablet 1 tab PO QAM RF: 0 fluoxetine 40 mg Capsule 40 mg PO QPM RF: 0 metoprolol succinate 100 mg Tablet Extended Release 24 Hr 100 mg PO QAM RF: 0 levothyroxine [Synthroid] 25 mcg Tablet 25 mcg PO QAM RF: 0 ferrous sulfate [iron] 325 mg (65 mg iron) Tablet 325 mg PO QAM RF: 0 omeprazole 20 mg Tablet,Delayed Release (Dr/Ec) 40 mg PO QAM RF: 0 atorvastatin 10 mg Tablet 10 mg PO PM RF: 0 Discontinued meloxicam 15 mg Tablet 15 mg PO QAM RF: 0 aspirin 81 mg Tablet,Delayed Release (Dr/Ec) 81 mg PO QAM RF: 0 Stand-Alone Forms: [facility] Discharge Orders: Discharge Order (Routine); Ordered 12/25/18 Ordered By: Simone Bill Skilled Items Patient informed of condition?: Yes DNR: No Discharge Level of Care: Skilled Communicable Disease: No Discharge Prognosis: Stable Admission Data Admit Date/Time: 12/23/18 13:39 Attending Provider: Joe Anaya Admit Provider: Joe Anaya Primary Care Provider: Álvaro Victor Service: Surgical Services Other Interventions: Discharge Summary Assessment (RN) Last Done: 12/25/18 14:07 DC Date/Time DO NOT enter until pt leaves facility: 12/25/18 15:52
== END 2018-12-25 15:52 | DRG 470 ==
LOC: ASU 09:20 → 3E 13:39

== ENCOUNTER 2021-08-03 12:47 | Inpatient (IN) ==
--- NOTE | 2021-08-03 13:46 | XRay Report ---
XR chest 1V portable CLINICAL HISTORY: Shortness of breath. COMPARISON STUDY: Chest radiograph May 18, 2019. FINDINGS: Lung volumes are normal. Lungs are clear. There is no pneumothorax or pleural effusion. The re is mild enlargement of the cardiac silhouette. Mediastinal contours are normal. There is no eviden ce for pulmonary edema. IMPRESSION: No acute cardiopulmonary findings. ACT 112: Negative or not required by law. Electronically signed by: Robbie Perez M.D. 08/03/2021 1:44 PM
[2021-08-03 14:21] LABS: Basophils # (auto) 0.02 K/uL (0-0.2); Basophils % (auto) 0.2 %; Eosinophils # (auto) 0.65 K/uL (0-0.5); Hematocrit (blood only) 35.4 % (42-52); Immature Granulocytes # (auto) 0.05 K/uL (0.00-0.02); Immature Granulocytes % (auto) 0.4 %; Lymphocytes # (auto) 1.43 K/uL (1.2-3.4); Lymphocytes % (auto) 11.1 %; Mean Corpuscular Hemoglobin 24.3 pg (25-34); Mean Corpuscular Hgb Conc 31.1 g/dL (32-36); Mean Corpuscular Volume 78.3 fL (80-100); Mean Platelet Volume 8.8 fL (7.4-10.4); Monocytes # (auto) 1.08 K/uL (0.11-0.59); Monocytes % (auto) 8.4 %; Neutrophils # (auto) 9.67 K/uL (1.4-6.5); Neutrophils % (auto) 74.9 %; Nucleated RBC # (auto) 0.06 K/uL (0-0); Nucleated RBC % (auto) 0.5 %; Platelet Count 464 K/uL (130-400); RDW Coefficient of Variation 17.1 % (11.5-14.5); RDW Standard Deviation 48.3 fL (36.4-46.3); Red Blood Count 4.52 M/uL (4.7-6.1)
[2021-08-03 14:36] LABS: INR 1.1 (0.9-1.1); Partial Thromboplastin Time 26.6 Seconds (21.0-31.0); Prothrombin Time 11.2 Seconds (9.0-12.0)
[2021-08-03 14:40] LABS: Albumin Level 2.5 gm/dl (3.4-5.0); BUN Creatinine Ratio 15.2 (10-20); Calcium 8.4 mg/dl (8.5-10.1); Creatinine Clr Calc Pharmacy 79.3 ml/min; Est GFR (African American) 91.1 ml/min; Est GFR (Non-African American) 78.6 ml/min; Magnesium 2.3 mg/dl (1.8-2.4); Potassium 3.4 mmol/L (3.5-5.1)
[2021-08-03 14:47] LABS: Albumin Globulin Ratio 0.5 (0.9-2); Bilirubin,Total 0.2 mg/dl (0.2-1); Globulin 4.8 gm/dl (2.5-4.0); Total Protein 7.3 gm/dl (6.4-8.2); Troponin I 0.062 ng/ml (0-0.045)
[2021-08-03] MEDS ORDERED: PIPERACILLIN/TAZOBACTAM 4.5 GM/120 ML BAG IV ONE (15:07)
[2021-08-03] MEDS ORDERED: PIPERACILL/TAZOBAC CONSULT ACTIVE PRN ×2 (15:07→20:10)
--- NOTE | 2021-08-03 15:17 | Emergency Department Note ---
Impression & Plan Pulmonary embolism and infarction, Deep vein thrombosis (DVT) of both lower extremities, Abscess of left hip, Hypoxia, Elevated troponin I level ED Provider Note Provider: Carlos Riddle MD DATE OF SERVICE: 08/03/2021 CHIEF COMPLAINT: Cough, shortness of breath HISTORY OF PRESENT ILLNESS: Patient is a 61-year-old gentleman past medical history including thyroid dysfunction, hypertension, cerebral palsy, and duodenal ulcer presenting here today via ambulance from [facility] his rehab fac ility after surgery on July [address] Salas of a left total hip replacement. Patient reportedly had some concern for infection of the left hip and an ultrasound possibly showed an abscess is been started on Zosyn over the past week. Reports about 2 to 3 days ago has had increasing weakness and fatigue with some diarrhea as well as episodes of low-grade stool per the report from the facility. Patient states had a significant cough that actually but improved after arrival here today. There is been no reports of any desaturations while at this facility there has been some mild bilateral swelling of the legs. Facility reports the incision has been while on the Zosyn. Patient denies significant chest pain or abdominal pain. Patient has been on aspirin for "DVT prophylaxis" but no other anticoagulation. Had negative PCR and Covid testing yesterday as well as a chest x-ray per the facility's report without acute findings of pneumonia. Facility had concerns given some tachypnea and weakness for possible sepsis or PE. Patient denies a history of C. difficile. Denies severe pain in the left hip only pain with lifting the left leg. REVIEW OF SYSTEMS: A total of 10 review of systems was obtained and negative except as stated above in the HPI. PAST MEDICAL HISTORY: As noted above MEDICATIONS: Reviewed medication list from the facility include Zosyn currently as well as aspirin SOCIAL HISTORY: Currently resides at [facility] PHYSICAL EXAM: GENERAL: alert and oriented in no acute distress on stretcher Head: normocephalic and atraumatic EYES: No injection, discharge or icterus. NECK: Trachea midline. Supple. ENT: Mucous membranes pink and moist. LUNGS: Airway patent. No retractions. Breath sounds clear with diminished bases HEART: Regular rate and rhythm. No chest wall tenderness ABDOMEN: Soft and non-tender, without guarding or rebound. SKIN: Acyanotic, warm, dry, legs as below. EXTREMITIES: 2+ lower extremity swelling. There is a healing incision wound over the left lateral hip. There is a left upper extremity PICC line in place (reported picc line but not seen on CXR. question midline). NEUROLOGICAL: No focal deficits moving all extremities. No aphasia. No facial droop or slurred speech. Normal strength and tone in the extremities. Sensation to gross touch normal. EK bpm normal sinus rhythm. No ST segment elevation with some anterior and lateral T wave inversions noted. QTc 565. CONTINUOUS CARDIAC MONITORING: was ordered and showed a heart rate of 80s to 90s bpm in normal sinus rhythm Patient's laboratory studies and imaging reviewed. Differential includes Infection, dehydration, metabolic abnormality, hypo/h yperglycemia, electrolyte disturbance, anemia, hypoxia, cardiac sources, intracerebral event, toxicologic, neurologic, as well as other pathologies. IMPRESSION/MEDICAL DECISION MAKING: Patient under treatment for possible left hip abscess. Has been on Zosyn. Afebrile here. Report of "low-grade fevers "at the facility unclear what this means. Patient saturations around 90% here on room air. X-ray without significant findings. Mild leukocytosis is noted here. Covid testing was sent again but recent negative from yesterday. Troponin is elevated unsure if this is new or chronic. Question possible onset of heart failure versus PE. Bilateral lower leg swelling is noted. Ultrasound be completed as well as CT of the chest and CT of the hip. Given a dose of his Zosyn here for continued coverage of the infections he is being treated for but again unsure that this is the primary cause of his symptoms. No evidence of acute ST segment elevation. Patient denies significant chest pain at this time. Patient again does not appear septic without significant fevers here but a mild leukocytosis. Does not appear acutely septic at this point or in shock. Hip CT is concerning for development of an abscess cannot exclude an acetabular fracture around the hardware. While this will need attention, significantly imaging shows extensive bilateral PEs as well as evidence of a DVT in left common femoral vein. Venous Dopplers with a right-sided DVT as well as a left common femoral DVT. Patient with a mildly positive troponin and BNP and now with a mild oxygen requirement requires immediate heparinization. Do not feel he requires TPA at this point. Again the patient has been covered with broad- spectrum antibiotics which I believe is helping his body to isolate the abscess in his hip and will need more definite treatment regarding the hip abscess however at this point with his significant PEs will focus on their treatment with antibiotics for the hip abscess at this time. DIAGNOSIS: Bilateral PEs, hypoxia, left hip abscess, bilateral DVTs DISPOSITION: Hospitalist will evaluate Patient was agreeable with this plan. Critical Care I have personally spent 36 minutes of critical care time in the direct management of this patient. This includes bedside care, interpretation of diagnostic studies, and testing, discussion with consultants, patient, and other required patient management activities. These 36 minutes is in excess of all separately billable procedures. Past Med/Surg History Medical History (Updated 08/03/21 @ 17:58 by Carlos Riddle M.D.) Depression GERD (gastroesophageal reflux disease) History of pancreatitis History of torsion of testis Hyperlipidemia Hypertension Hypothyroidism Mild cerebral palsy Osteoarthritis Surgical History H/O unilateral orchiectomy History of colonoscopy W/ POLYPECTOMY History of tonsillectomy Family History Mother Family history of diabetes mellitus Sister Family history of diabetes mellitus Social History Smoking Status: Never smoker Second Hand Exposure: Yes ( A CHILD - MOTHER WAS A SMOKER); Hx Alcohol Use: No Hx Substance Use: No Preferred Language: Singaporean Communication Ability: Effective Optical Scientist Required: No Beliefs That Will Affect Care: None Current Living Situation: Alone Feels Safe at Home: Yes Assistive Devices: Glasses and Walker Allergies Allergies Allergy/AdvReac Type Severity Reaction Status Date / Time No Known Allergies Allergy Verified 08/03/21 14:39 Home Meds Home Medications Medication Instructions Recorded Confirmed atorvastatin 10 mg tablet 10 mg PO PM 12/12/18 08/03/21 ferrous sulfate 325 mg (65 mg 325 mg PO BID 12/12/18 08/03/21 iron) tablet (iron) levothyroxine 25 mcg tablet 25 mcg PO QAM 12/12/18 08/03/21 (Synthroid) metoprolol succinate 100 mg 100 mg PO QAM 12/12/18 08/03/21 tablet,extended release 24 hr omeprazole 20 mg tablet,delayed 40 mg PO QAM 12/12/18 08/03/21 release aspirin 81 mg tablet,delayed 81 mg PO BID 08/03/21 08/03/21 release eszopiclone 1 mg tablet 1 mg PO HS 08/03/21 08/03/21 furosemide 40 mg tablet 40 mg PO QAM 08/03/21 08/03/21 piperacillin-tazobactam 3.375 gram 3.375 g IV Q12H 08/03/21 08/03/21 intravenous solution polyethylene glycol 3350 17 17 g PO QAM 08/03/21 08/03/21 gram/dose oral powder (Miralax) sodium chloride 0.9 % (flush) 10 ml IV Q12H 08/03/21 08/03/21 (Normal Saline Flush) tramadol 50 mg tablet 50 mg PO Q6H PRN 08/03/21 08/03/21 Results & Data (ED) Vital Signs Vital Signs - 24 hr 08/03/21 12:47 08/03/21 13:27 08/03/21 14:45 Temperature 36.5 C Temperature Source Oral Pulse Rate 105 H 105 H 91 H Pulse Rate from SpO2 Sensor 92 H Pulse Rhythm Regular Regular Respiratory Rate 21 21 46 H Respiratory Effort / Characteristics Non-Labored Respiratory Depth Normal Respiratory Pattern Regular Blood Pressure 112/76 116/79 Blood Pressure Mean 88 91 Pulse Oximetry 96 96 90 Oxygen Delivery Method Room Air Room Air Oxygen Flow Rate Sepsis Recent Fever Within 48 Hours No Sepsis New/Unexplained Change in Mental Status No Sepsis Action Taken by Nursing Physician Notified 08/03/21 15:00 08/03/21 15:30 08/03/21 17:00 Temperature Temperature Source Pulse Rate 87 84 82 Pulse Rate from SpO2 Sensor 87 82 82 Pulse Rhythm Respiratory Rate 22 27 H 34 H Respiratory Effort / Characteristics Respiratory Depth Respiratory Pattern Blood Pressure 126/82 112/76 Blood Pressure Mean 96 88 Pulse Oximetry 90 93 97 Oxygen Delivery Method Nasal Cannula Nasal Cannula Oxygen Flow Rate 2 2 Sepsis Recent Fever Within 48 Hours Sepsis New/Unexplained Change in Mental Status Sepsis Action Taken by Nursing 08/03/21 18:00 08/03/21 18:30 Temperature Temperature Source Pulse Rate 85 86 Pulse Rate from SpO2 Sensor 85 85 Pulse Rhythm Respiratory Rate 28 H 33 H Respiratory Effort / Characteristics Respiratory Depth Respiratory Pattern Blood Pressure 121/79 Blood Pressure Mean 93 Pulse Oximetry 93 92 Oxygen Delivery Method Room Air Room Air Oxygen Flow Rate Sepsis Recent Fever Within 48 Hours Sepsis New/Unexplained Change in Mental Status Sepsis Action Taken by Nursing Laboratory Data Result diagrams: 08/03/21 14:08 08/03/21 14:08 Lab Results 08/03/21 08/03/21 08/03/21 Range/Units 14:08 14:08 14:08 WBC 12.90 H (4.8-10.8) K/uL RBC 4.52 L (4.7-6.1) M/uL Hgb 11.0 L (14.0-18.0) g/dL Hct 35.4 L (42-52) % MCV 78.3 L (80-100) fL MCH 24.3 L (25-34) pg MCHC 31.1 L (32-36) g/dL RDW Std Deviation 48.3 H (36.4-46.3) fL RDW Coeff of Tani 17.1 H (11.5-14.5) % Plt Count 464 H (130-400) K/uL MPV 8.8 (7.4-10.4) fL Immature Gran % (Auto) 0.4 % Neut % (Auto) 74.9 % Lymph % (Auto) 11.1 % [place] % (Auto) 8.4 % Eos % (Auto) 5.0 % Baso % (Auto) 0.2 % Neut # (Auto) 9.67 H (1.4-6.5) K/uL Lymph # (Auto) 1.43 (1.2-3.4) K/uL [place] # (Auto) 1.08 H (0.11-0.59) K/uL Eos # (Auto) 0.65 H (0-0.5) K/uL Baso # (Auto) 0.02 (0-0.2) K/uL Immature Gran # (Auto) 0.05 H (0.00-0.02) K/uL Absolute Nucleated RBC 0.06 H (0-0) K/uL Nucleated RBC % (auto) 0.5 % PT 11.2 (9.0-12.0) Seconds INR 1.1 (0.9-1.1) APTT 26.6 (21.0-31.0) Seconds PTT Ratio 1.0 Sodium 139 (136-145) mmol/L Potassium 3.4 L (3.5-5.1) mmol/L Chloride 105 (98-107) mmol/L Carbon Dioxide 26 (21-32) mmol/L Anion Gap 8.0 (3-11) BUN 16 (7-18) mg/dl Creatinine 1.03 (0.6-1.4) mg/dl Est Cr Clr Drug Dosing 79.3 ml/min Est GFR ( Amer) 91.1 ml/min Est GFR (Non-Af Amer) 78.6 ml/min BUN/Creatinine Ratio 15.2 (10-20) Glucose 112 H (70-99) mg/dl Calcium 8.4 L (8.5-10.1) mg/dl Magnesium 2.3 (1.8-2.4) mg/dl Total Bilirubin 0.2 (0.2-1) mg/dl AST 30 (15-37) U/L ALT 47 (12-78) U/L Alkaline Phosphatase 106 (45-117) U/L Troponin I 0.062 H* (0-0.045) ng/ml NT-Pro-B Natriuret Pep (0-900) pg/ml Total Protein 7.3 (6.4-8.2) gm/dl Albumin 2.5 L (3.4-5.0) gm/dl Globulin 4.8 H (2.5-4.0) gm/dl Albumin/Globulin Ratio 0.5 L (0.9-2) Procalcitonin (0-0.5) ng/ml COVID-19 Eval Order SARS-CoV-2 (PCR) (Negative) 08/03/21 08/03/21 08/03/21 Range/Units 14:08 14:11 15:15 WBC (4.8-10.8) K/uL RBC (4.7-6.1) M/uL Hgb (14.0-18.0) g/dL Hct (42-52) % MCV (80-100) fL MCH (25-34) pg MCHC (32-36) g/dL RDW Std Deviation (36.4-46.3) fL RDW Coeff of Tani (11.5-14.5) % Plt Count (130-400) K/uL MPV (7.4-10.4) fL Immature Gran % (Auto) % Neut % (Auto) % Lymph % (Auto) % [place] % (Auto) % Eos % (Auto) % Baso % (Auto) % Neut # (Auto) (1.4-6.5) K/uL Lymph # (Auto) (1.2-3.4) K/uL [place] # (Auto) (0.11-0.59) K/uL Eos # (Auto) (0-0.5) K/uL Baso # (Auto) (0-0.2) K/uL Immature Gran # (Auto) (0.00-0.02) K/uL Absolute Nucleated RBC (0-0) K/uL Nucleated RBC % (auto) % PT (9.0-12.0) Seconds INR (0.9-1.1) APTT (21.0-31.0) Seconds PTT Ratio Sodium (136-145) mmol/L Potassium (3.5-5.1) mmol/L Chloride (98-107) mmol/L Carbon Dioxide (21-32) mmol/L Anion Gap (3-11) BUN (7-18) mg/dl Creatinine (0.6-1.4) mg/dl Est Cr Clr Drug Dosing ml/min Est GFR ( Amer) ml/min Est GFR (Non-Af Amer) ml/min BUN/Creatinine Ratio (10-20) Glucose (70-99) mg/dl Calcium (8.5-10.1) mg/dl Magnesium (1.8-2.4) mg/dl Total Bilirubin (0.2-1) mg/dl AST (15-37) U/L ALT (12-78) U/L Alkaline Phosphatase (45-117) U/L Troponin I (0-0.045) ng/ml NT-Pro-B Natriuret Pep 2769 H (0-900) pg/ml Total Protein (6.4-8.2) gm/dl Albumin (3.4-5.0) gm/dl Globulin (2.5-4.0) gm/dl Albumin/Globulin Ratio (0.9-2) Procalcitonin < 0.05 (0-0.5) ng/ml COVID-19 Eval Order Covid19 at [facility] SARS-CoV-2 (PCR) (Negative) 08/03/21 Range/Units 15:15 WBC (4.8-10.8) K/uL RBC (4.7-6.1) M/uL Hgb (14.0-18.0) g/dL Hct (42-52) % MCV (80-100) fL MCH (25-34) pg MCHC (32-36) g/dL RDW Std Deviation (36.4-46.3) fL RDW Coeff of Tani (11.5-14.5) % Plt Count (130-400) K/uL MPV (7.4-10.4) fL Immature Gran % (Auto) % Neut % (Auto) % Lymph % (Auto) % [place] % (Auto) % Eos % (Auto) % Baso % (Auto) % Neut # (Auto) (1.4-6.5) K/uL Lymph # (Auto) (1.2-3.4) K/uL [place] # (Auto) (0.11-0.59) K/uL Eos # (Auto) (0-0.5) K/uL Baso # (Auto) (0-0.2) K/uL Immature Gran # (Auto) (0.00-0.02) K/uL Absolute Nucleated RBC (0-0) K/uL Nucleated RBC % (auto) % PT (9.0-12.0) Seconds INR (0.9-1.1) APTT (21.0-31.0) Seconds PTT Ratio Sodium (136-145) mmol/L Potassium (3.5-5.1) mmol/L Chloride (98-107) mmol/L Carbon Dioxide (21-32) mmol/L Anion Gap (3-11) BUN (7-18) mg/dl Creatinine (0.6-1.4) mg/dl Est Cr Clr Drug Dosing ml/min Est GFR ( Amer) ml/min Est GFR (Non-Af Amer) ml/min BUN/Creatinine Ratio (10-20) Glucose (70-99) mg/dl Calcium (8.5-10.1) mg/dl Magnesium (1.8-2.4) mg/dl Total Bilirubin (0.2-1) mg/dl AST (15-37) U/L ALT (12-78) U/L Alkaline Phosphatase (45-117) U/L Troponin I (0-0.045) ng/ml NT-Pro-B Natriuret Pep (0-900) pg/ml Total Protein (6.4-8.2) gm/dl Albumin (3.4-5.0) gm/dl Globulin (2.5-4.0) gm/dl Albumin/Globulin Ratio (0.9-2) Procalcitonin (0-0.5) ng/ml COVID-19 Eval Order SARS-CoV-2 (PCR) NEGATIVE (Negative) Administered Medications Heparin Sodium/Dextrose (Heparin Sodium/Dextrose) 25,000 units in 500 mls @ 26 mls/hr IV .[id number] [facility]; Protocol Stop: 09/02/21 17:44 Last Admin: 08/03/21 18:08 Dose: 1,300 units/hr, 26 mls/hr Documented by: [id number] Cosigned by: [id number] Discontinued Medications Heparin Sodium (Porcine) (Heparin Sod (Porcine) 1000 Unit/Ml) 1 units IV NOW ONE Stop: 08/03/21 17:41 Last Admin: 08/03/21 18:08 Dose: 6,000 units Documented by: [id number] Cosigned by: [id number] Piperacillin Sod/Tazobactam Sod (Zosyn) 4.5 gm in 120 mls @ 240 mls/hr IV NOW ONE Stop: 08/03/21 15:36 Last Infusion: 08/03/21 15:42 Dose: 0 mls/hr Documented by: [id number] Admin: 08/03/21 15:12 Dose: 240 mls/hr Documented by: [id number] Ioversol (Optiray 320 125ml) 116 ml IV ONCE ONE Stop: 08/03/21 16:38 Last Admin: 08/03/21 16:37 Dose: 116 ml Documented by: [id number] Imaging Data Radiologist's Impression: Chest X-Ray 08/03/21 13:27 XR chest 1V portable CLINICAL HISTORY: Shortness of breath. COMPARISON STUDY: Chest radiograph May 18, 2019. FINDINGS: Lung volumes are normal. Lungs are clear. There is no pneumothorax or pleural effusion. There is mild enlargement of the cardiac silhouette. Mediastinal contours are normal. There is no evidence for pulmonary edema. IMPRESSION: No acute cardiopulmonary findings. ACT 112: Negative or not required by law. Electronically signed by: Robbie Perez M.D. 08/03/2021 1:44 PM Chest CTA 08/03/21 15:06 CT ANGIOGRAM OF THE CHEST CLINICAL HISTORY: Cough. Dyspnea. COMPARISON STUDY: Chest x-ray dated 08/03/2021 TECHNIQUE: Following the IV administration of 116 cc of Optiray 320, CT angiogram of the chest was performed from the upper abdomen to the thoracic inlet utilizing the pulmonary embolus protocol. Images are reviewed in the axial, sagittal, and coronal planes. 3-D MIPS images are created and assessed. IV contrast was administered without complication. A dose lowering technique was utilized adhering to the principles of ALARA. CT DOSE: 1454.46 mGy.cm FINDINGS: Thyroid: Imaged portions of the thyroid gland are normal in size and attenuation. Thoracic aorta: The thoracic aorta is normal in caliber and demonstrates standard 3-vessel arch anatomy. No dissection is seen. Pulmonary vasculature: The pulmonary trunk is normal in caliber. There is a large thrombus within the right main pulmonary artery. This extends into the right upper, middle, and lower lobe pulmonary arteries. Segmental and subsegmental pulmonary emboli are seen within the right upper, middle, and lower lobes. There is thrombus within the distal left main pulmonary artery. This extends into the left upper and left lower lobe pulmonary arteries into segmental and subsegmental branches. Heart: The heart is normal in size and without pericardial effusion. There are scattered coronary artery calcifications. Lungs and pleural spaces: Evaluation of the lung parenchyma is significantly degraded by motion artifact. The trachea and central airways are clear. A wedge- shaped subpleural opacity at the right lung base on image #100 likely represents a pulmonary infarct. Mild atelectasis is noted at the left lung base. There is trace right pleural effusion. Mediastinum: There is no mediastinal lymphadenopathy. Dalila: Clear. Axillae: There is no axillary lymphadenopathy. Upper abdomen: There is a small hiatal hernia. Numerous gallstones are noted. Skeletal structures: No lytic or blastic bony lesions are seen. IMPRESSION: 1. Extensive bilateral pulmonary embolus as above. 2. There is a small pulmonary infarct at the right lung base. 3. Trace right pleural effusion. 4. Cholelithiasis. 5. Additional findings as above. ACT 112: Negative or not required by law. Electronically signed by: Behzad Gregorio M.D. 08/03/2021 4:[address] 08/03/21 15:06 CT OF THE LEFT HIP WITH CONTRAST CLINICAL HISTORY: Left hip pain. Recent surgery. Being treated for abscess. COMPARISON STUDY: No previous studies for comparison. TECHNIQUE: Axial images of the left hip were obtained following intravenous injection of 116 cc of Optiray 320 IV. Sagittal and coronal reconstructions were viewed. Automated exposure control was utilized for the study. A dose lowering technique was utilized adhering to the principles of ALARA. FINDINGS: Left hip arthroplasty is noted. Hardware is intact. There is a lucency within the superolateral left acetabulum. Note is made of a fluid and gas conta ining collection along the anterior aspect of the hip arthroplasty which measures 7.1 x 2.8 cm. This extends to the bone and the hardware as well as the joint space. This extends into the left rectus femoris. This demonstrates peripheral enhancement. No additional fluid collections are present. Note is made of deep venous thrombus within the left common femoral vein. No significant abnormality within visualized portions of the left hemipelvis is identified. IMPRESSION: 1. Status post total left hip arthroplasty. 7.1 x 2.8 cm rim-enhancing fluid collection anterior to the arthroplasty. This extends to the hardware, bone and joint space and is suggestive of an abscess. 2. Deep venous thrombus within the left common femoral vein. 3. Lucency within the superolateral left acetabulum. This could reflect a nondisplaced fracture. ACT 112: Negative or not required by law. Electronically signed by: Robbie Perez M.D. 08/03/2021 4:51 PM Venous Doppler Study 08/03/21 15:06 BILATERAL LOWER EXTREMITY VENOUS DOPPLER CLINICAL HISTORY: swelling, recent surgery COMPARISON STUDY: No previous studies for comparison. TECHNIQUE: Sonography of the deep venous system of the bilateral lower extremities was performed. Compression and augmentation were evaluated. FINDINGS: This exam is compromised by suboptimal penetration. Note is made of deep venous thrombus within the right popliteal vein as well as the right posterior tibial vein. Deep venous thrombus within the left common femoral vein is noted. IMPRESSION: Deep venous thrombus within the right popliteal and posterior tibial veins and left common femoral vein. ACT 112: Negative or not required by law. Electronically signed by: Robbie Perez M.D. 08/03/2021 5:52 PM Discharge Plan Visit Data Chief Complaint: Shortness of Breath/Dyspnea Stated Complaint: SOB Cough ED Provider: Carlos Riddle Discharge Problem: Pulmonary embolism and infarction, Deep vein thrombosis (DVT) of both lower extremities, Abscess of left hip, Hypoxia, Elevated troponin I level Patient Disposition: Admitted As Inpatient Forms Stand Alone Forms: My [facility] Prescriptions Prescriptions: No Action metoprolol succinate 100 mg Tablet Extended Release 24 Hr 100 mg PO QAM RF: 0 levothyroxine [Synthroid] 25 mcg Tablet 25 mcg PO QAM RF: 0 ferrous sulfate [iron] 325 mg (65 mg iron) Tablet 325 mg PO BID RF: 0 omeprazole 20 mg Tablet,Delayed Release (Dr/Ec) 40 mg PO QAM RF: 0 atorvastatin 10 mg Tablet 10 mg PO PM RF: 0 aspirin 81 mg Tablet,Delayed Release (Dr/Ec) 81 mg PO BID RF: 0 eszopiclone 1 mg tablet 1 mg PO HS RF: 0 furosemide 40 mg Tablet 40 mg PO QAM RF: 0 piperacillin-tazobactam [Zosyn] 3.375 gram Recon Soln 3.375 g IV Q12H RF: 0 polyethylene glycol 3350 [Miralax] 17 gram/dose Powder 17 g PO QAM RF: 0 sodium chloride 0.9 % (flush) [Normal Saline Flush] Syringe 10 ml IV Q12H RF: 0 tramadol 50 mg Tablet 50 mg PO Q6H PRN (Reason: Pain) RF: 0 Referrals Referrals: Radha Dyson MD [Primary Care Provider] - Discharge Problem: Deep vein thrombosis (DVT) of both lower extremities Qualifiers: Affected thrombotic vein of extremity: unspecified vein of extremity Chron icity: acute Qualified Code(s): I82.403 - Acute embolism and thrombosis of unspecified deep veins of lower extremity, bilateral
[2021-08-03] MEDS ORDERED: OPTIRAY 320 125ml IV ONE (16:37)
--- NOTE | 2021-08-03 16:45 | CT Scan Report ---
CT ANGIOGRAM OF THE CHEST CLINICAL HISTORY: Cough. Dyspnea. COMPARISON STUDY: Chest x-ray dated 08/03/2021 TECHNIQUE: Following the IV administration of 116 cc of Optiray 320, CT angiogram of the chest was pe rformed from the upper abdomen to the thoracic inlet utilizing the pulmonary embolus protocol. Images are reviewed in the axial, sagittal, and coronal planes. 3-D MIPS images are created and assessed. I V contrast was administered without complication. A dose lowering technique was utilized adhering to the principles of ALARA. CT DOSE: 1454.46 mGy.cm FINDINGS: Thyroid: Imaged portions of the thyroid gland are normal in size and attenuation. Thoracic aorta: The thoracic aorta is normal in caliber and demonstrates standard 3-vessel arch anato my. No dissection is seen. Pulmonary vasculature: The pulmonary trunk is normal in caliber. There is a large thrombus within the right main pulmonary artery. This extends into the right upper, middle, and lower lobe pulmonary art eries. Segmental and subsegmental pulmonary emboli are seen within the right upper, middle, and lower lobes. There is thrombus within the distal left main pulmonary artery. This extends into the left up per and left lower lobe pulmonary arteries into segmental and subsegmental branches. Heart: The heart is normal in size and without pericardial effusion. There are scattered coronary art twan calcifications. Lungs and pleural spaces: Evaluation of the lung parenchyma is significantly degraded by motion artif act. The trachea and central airways are clear. A wedge-shaped subpleural opacity at the right lung b ase on image #100 likely represents a pulmonary infarct. Mild atelectasis is noted at the left lung b ase. There is trace right pleural effusion. Mediastinum: There is no mediastinal lymphadenopathy. Dalila: Clear. Axillae: There is no axillary lymphadenopathy. Upper abdomen: There is a small hiatal hernia. Numerous gallstones are noted. Skeletal structures: No lytic or blastic bony lesions are seen. IMPRESSION: 1. Extensive bilateral pulmonary embolus as above. 2. There is a small pulmonary infarct at the right lung base. 3. Trace right pleural effusion. 4. Cholelithiasis. 5. Additional findings as above. ACT 112: Negative or not required by law. Electronically signed by: Behzad Gregorio M.D. 08/03/2021 4:43 PM
--- NOTE | 2021-08-03 16:53 | CT Scan Report ---
CT OF THE LEFT HIP WITH CONTRAST CLINICAL HISTORY: Left hip pain. Recent surgery. Being treated for abscess. COMPARISON STUDY: No previous studies for comparison. TECHNIQUE: Axial images of the left hip were obtained following intravenous injection of 116 cc of Op tiray 320 IV. Sagittal and coronal reconstructions were viewed. Automated exposure control was utiliz ed for the study. A dose lowering technique was utilized adhering to the principles of ALARA. FINDINGS: Left hip arthroplasty is noted. Hardware is intact. There is a lucency within the superolat eral left acetabulum. Note is made of a fluid and gas containing collection along the anterior aspect of the hip arthroplasty which measures 7.1 x 2.8 cm. This extends to the bone and the hardware as we ll as the joint space. This extends into the left rectus femoris. This demonstrates peripheral enhanc ement. No additional fluid collections are present. Note is made of deep venous thrombus within the l eft common femoral vein. No significant abnormality within visualized portions of the left hemipelvis is identified. IMPRESSION: 1. Status post total left hip arthroplasty. 7.1 x 2.8 cm rim-enhancing fluid collection anterior to t he arthroplasty. This extends to the hardware, bone and joint space and is suggestive of an abscess. 2. Deep venous thrombus within the left common femoral vein. 3. Lucency within the superolateral left acetabulum. This could reflect a nondisplaced fracture. ACT 112: Negative or not required by law. Electronically signed by: Robbie Perez M.D. 08/03/2021 4:51 PM
[2021-08-03] MEDS ORDERED: Heparin IV Adult Wt-Based Standard WITH Bolus Protocol IV STA (17:25)
[2021-08-03] MEDS ORDERED: Heparin IV Adult Wt-Based Standard WITH Bolus Protocol IV SCH (17:30)
[2021-08-03] MEDS ORDERED: HEPARIN SOD (PORCINE) 1000 UNIT/ML IV ONE (17:40)
--- NOTE | 2021-08-03 17:53 | Ultrasound Report ---
BILATERAL LOWER EXTREMITY VENOUS DOPPLER CLINICAL HISTORY: swelling, recent surgery COMPARISON STUDY: No previous studies for comparison. TECHNIQUE: Sonography of the deep venous system of the bilateral lower extremities was performed. Co mpression and augmentation were evaluated. FINDINGS: This exam is compromised by suboptimal penetration. Note is made of deep venous thrombus wi thin the right popliteal vein as well as the right posterior tibial vein. Deep venous thrombus within the left common femoral vein is noted. IMPRESSION: Deep venous thrombus within the right popliteal and posterior tibial veins and left commo n femoral vein. ACT 112: Negative or not required by law. Electronically signed by: Robbie Perez M.D. 08/03/2021 5:52 PM
[2021-08-03] MEDS: HEPARIN SODIUM/DEXTROSE 25,000 UNITS/500 ML BAG IV SCH (18:08)
--- NOTE | 2021-08-03 18:20 | History & Physical Report ---
Date of Service August 03, 2021 Assessment & Plan (1) Pulmonary embolism and infarction: (2) Deep vein thrombosis (DVT) of both lower extremities: Plan: Patient is 61-year-old male with PMH cerebral palsy, HTN, GERD, ANKITA, hypothyroidism, depression, H/O COVID-19 and PE in 09/2020 presented to ER with complaint of shortness of breath x several days. H/O left hip replacement on 07/04/2021 Patient with history bilateral PE and COVID-19 pneumonia in 09/2020. Outpatient notes reviewed reports that CTA chest showed extensive R and probably minimal L pulmonary emboli including a large right pulmonary artery embolus. Ground glass infiltrates consistent with hx of COVID 19. Negative Dopplers. Echo: EF >65%, normal wall thickness, and wall motion, mild mitral and aortic valve regurge In ER patient afebrile, tachycardic, tachypneic, BP stable, oxygen sats noted to drop to 89% on room air up to 94% on 2 L via nasal cannula. WBC: 12, negative COVID-19 PCR, troponin 0.06, BNP: 2769, negative procalcitonin CTA chest: Extensive bilateral pulmonary embolus. There is a small pulmonary infarct at the right lung base. Trace right pleural effusion. BLE venous Doppler: Deep venous thrombus within the right popliteal and posterior tibial veins and left common femoral vein. In ER IV heparin was started Continue IV heparin Supplemental oxygen Pulmonology consult (3) Abscess of left hip: Plan: H/O elective left hip replacement on 07/04/2021 at [facility] by Dr. Bob Salas. Developed redness and swelling at incision site, fever. Culture of discharge obtained+Proteus. He was seen by Ortho 07/26/2021 and it is reported ultrasound showed cellulitis without fluid collection. He was started on IV Zosyn 08/03/2021: Left hip CT: Status post total left hip arthroplasty. 7.1 x 2.8 cm rim-enhancing fluid collection anterior to the arthroplasty. This extends to the hardware, bone and joint space and is suggestive of an abscess. Deep venous thrombus within the left common femoral vein. Lucency within the superolateral left acetabulum. This could reflect a nondisplaced fracture. WBC: 12 In ER given Zosyn We will continue Zosyn, add vancomycin Blood cultures pending, patient has been on IV antibiotics outpatient Ortho consult Continue tramadol, Tylenol as needed pain Elevated troponin Troponin: 0.06, EKG ST changes anterior lateral leads. Trend troponin EKG in a.m. Patient on IV heparin for PE as above May need to consider cardiology consult Diarrhea Patient reports loose stools Obtain C. difficile and stool cultures HTN Continue metoprolol succinate, Lasix Dyslipidemia Continue atorvastatin ANKITA Continue CPAP at bedtime Hypothyroidism Continue levothyroxine DVT Prophylaxis Has bilateral lower extremity DVT and bilateral PE on admission. Is on IV heparin Full code as per discussion with pt Follows with Dr Fredo Varghese for routine care Pt was seen and care coordinated with Dr Clemente. See addendum History of Present Illness Chief Complaint: SOB Primary Care Provider: Radha Varghese MD Patient is 61-year-old male with PMH cerebral palsy, HTN, GERD, ANKITA, hypothyroidism, depression, H/O COVID-19 and PE in 09/2020 presented to ER with complaint of shortness of breath. Patient with history elective left hip replacement on 07/04/2021 at [facility] by Dr. Bob Salas. He was discharged 07/08/2021 to [facility] for rehab and is on aspirin 81 mg twice daily for VTE prophylaxis. Patient developed redness and swelling at incision site and is reported patient had fever. Superficial culture of discharge obtained and was positive for Proteus. He was seen by Ortho 07/26/2021 and it is reported ultrasound showed cellulitis without fluid collection. He was started on IV Zosyn. Reports bilateral leg edema. 2 days ago patient with increased weakness, fever and multiple loose stools. He had had negative COVID- 19 testing and negative chest x-ray. Patient states last 3 days been short of breath and has had clear productive cough. Denies diaphoresis, N/V, melena, hematochezia, hemoptysis, CERDA, dizziness, syncope, vision changes, neck pain, CP, palpitations, sore throat, choking, otalgia, rhinorrhea, abdominal pain, paresthesias, weakness, extremity weakness, other rashes, urinary symptoms. In ER patient afebrile, tachycardic, tachypneic, BP stable, oxygen sats noted to drop to 89% on room air up to 94% on 2 L via nasal cannula. WBC: 12, negative COVID-19 PCR, troponin 0.06, BNP: 2769, negative pro calcitonin CTA chest: Extensive bilateral pulmonary embolus. There is a small pulmonary infarct at the right lung base. Trace right pleural effusion. BLE venous Doppler: Deep venous thrombus within the right popliteal and posterior tibial veins and left common femoral vein. Left hip CT: Status post total left hip arthroplasty. 7.1 x 2.8 cm rim-enhancing fluid collection anterior to the arthroplasty. This extends to the hardware, bone and joint space and is suggestive of an abscess. Deep venous thrombus within the left common femoral vein. Lucency within the superolateral left acetabulum. This could reflect a nondisplaced fracture. In ER IV heparin was started Allergies Allergy/AdvReac Type Severity Reaction Status Date / Time No Known Allergies Allergy Verified 08/03/21 14:39 Home Medications Medication Instructions Recorded Confirmed Type atorvastatin 10 mg tablet 10 mg PO PM 12/12/18 08/03/21 History ferrous sulfate 325 mg (65 mg 325 mg PO BID 12/12/18 08/03/21 History iron) tablet (iron) levothyroxine 25 mcg tablet 25 mcg PO QAM 12/12/18 08/03/21 History (Synthroid) metoprolol succinate 100 mg 100 mg PO QAM 12/12/18 08/03/21 History tablet,extended release 24 hr omeprazole 20 mg tablet,delayed 40 mg PO QAM 12/12/18 08/03/21 History release aspirin 81 mg tablet,delayed 81 mg PO BID 08/03/21 08/03/21 History release eszopiclone 1 mg tablet 1 mg PO HS 08/03/21 08/03/21 History furosemide 40 mg tablet 40 mg PO QAM 08/03/21 08/03/21 History piperacillin-tazobactam 3.375 gram 3.375 g IV Q12H 08/03/21 08/03/21 History intravenous solution polyethylene glycol 3350 17 17 g PO QAM 08/03/21 08/03/21 History gram/dose oral powder (Miralax) sodium chloride 0.9 % (flush) 10 ml IV Q12H 08/03/21 08/03/21 History (Normal Saline Flush) tramadol 50 mg tablet 50 mg PO Q6H PRN 08/03/21 08/03/21 History Past Med/Surg History Medical History (Updated 08/04/21 @ 13:17 by Simone Bill PA-C) Depression GERD (gastroesophageal reflux disease) History of pancreatitis History of torsion of testis Hyperlipidemia Hypertension Hypothyroidism Mild cerebral palsy Osteoarthritis Surgical History H/O unilateral orchiectomy History of colonoscopy W/ POLYPECTOMY History of tonsillectomy Family History Mother Family history of diabetes mellitus Sister Family history of diabetes mellitus Social History Smoking Status: Never smoker Second Hand Exposure: Yes ( A CHILD - MOTHER WAS A SMOKER); Hx Alcohol Use: No Hx Substance Use: No Preferred Language: Kyrgyz Communication Ability: Effective Drama Therapist Required: No Beliefs That Will Affect Care: None Current Living Situation: Alone How many Children do You have: 0 Feels Safe at Home: Yes Assistive Devices: Glasses and Oxygen - Continuous Review of Systems Review of Systems: All systems reviewed & are unremarkable except as noted in HPI & below Physical Exam Physical Exam: General: +tachypneic, obese Head: normocephalic, atraumatic Eyes: PERRL, EOM's intact, conjunctiva non-injected, anicteric ENT: normal inspection external ears, nose, mucous membranes moist Neck: supple, trachea midline Lungs: clear, +tachypneic - respirations 28, 94% on 2L O2 via NC. Diminished breath sounds CV: RRR, no murmur, + bilateral lower extremity edema Abd: normal BS, soft, non-tender Ext: no cyanosis, LLE: Anterior hip with surgical incision without significant erythema or warmth, + induration, no significant tenderness to palpation, bilateral lower extremities with edema, distal pulses palpable Neuro: A&O x 3, no focal deficits noted, normal affect Skin: warm, dry Results & Data Results & Data ([facility]) Vital Signs (Past 12 Hours) Vital Signs Temp Pulse Resp BP Pulse Ox 08/03/21 15:30 84 27 H 93 08/03/21 15:00 87 22 126/82 90 08/03/21 14:45 91 H 46 H 116/79 90 08/03/21 13:27 105 H 21 96 08/03/21 12:47 36.5 C 105 H 21 112/76 96 Laboratory Results Short CBC 08/03/21 Range/Units 14:08 WBC 12.90 H (4.8-10.8) K/uL Hgb 11.0 L (14.0-18.0) g/dL Hct 35.4 L (42-52) % Plt Count 464 H (130-400) K/uL BMP 08/03/21 14:08 Sodium 139 Potassium 3.4 L Chloride 105 Carbon Dioxide 26 BUN 16 Creatinine 1.03 Glucose 112 H Calcium 8.4 L Cardiac Enzymes 08/03/21 Range/Units 14:08 Troponin I 0.062 H* (0-0.045) ng/ml Liver Function 08/03/21 Range/Units 14:08 Total Bilirubin 0.2 (0.2-1) mg/dl AST 30 (15-37) U/L ALT 47 (12-78) U/L Alkaline Phosphatase 106 (45-117) U/L Albumin 2.5 L (3.4-5.0) gm/dl Diagnostic Findings Chest X-Ray 08/03/21 13:27 XR chest 1V portable CLINICAL HISTORY: Shortness of breath. COMPARISON STUDY: Chest radiograph May 18, 2019. FINDINGS: Lung volumes are normal. Lungs are clear. There is no pneumothorax or pleural effusion. There is mild enlargement of the cardiac silhouette. Mediastinal contours are normal. There is no evidence for pulmonary edema. IMPRESSION: No acute cardiopulmonary findings. ACT 112: Negative or not required by law. Electronically signed by: Robbie Perez M.D. 08/03/2021 1:44 PM Chest CTA 08/03/21 15:06 CT ANGIOGRAM OF THE CHEST CLINICAL HISTORY: Cough. Dyspnea. COMPARISON STUDY: Chest x-ray dated 08/03/2021 TECHNIQUE: Following the IV administration of 116 cc of Optiray 320, CT angiogram of the chest was performed from the upper abdomen to the thoracic inlet utilizing the pulmonary embolus protocol. Images are reviewed in the a xial, sagittal, and coronal planes. 3-D MIPS images are created and assessed. IV contrast was administered without complication. A dose lowering technique was utilized adhering to the principles of ALARA. CT DOSE: 1454.46 mGy.cm FINDINGS: Thyroid: Imaged portions of the thyroid gland are normal in size and attenuation. Thoracic aorta: The thoracic aorta is normal in caliber and demonstrates standard 3-vessel arch anatomy. No dissection is seen. Pulmonary vasculature: The pulmonary trunk is normal in caliber. There is a large thrombus within the right main pulmonary artery. This extends into the right upper, middle, and lower lobe pulmonary arteries. Segmental and subsegmental pulmonary emboli are seen within the right upper, middle, and lower lobes. There is thrombus within the distal left main pulmonary artery. This extends into the left upper and left lower lobe pulmonary arteries into segmental and subsegmental branches. Heart: The heart is normal in size and without pericardial effusion. There are scattered coronary artery calcifications. Lungs and pleural spaces: Evaluation of the lung parenchyma is significantly degraded by motion artifact. The trachea and central airways are clear. A wedge- shaped subpleural opacity at the right lung base on image #100 likely represents a pulmonary infarct. Mild atelectasis is noted at the left lung base. There is trace right pleural effusion. Mediastinum: There is no mediastinal lymphadenopathy. Dalila: Clear. Axillae: There is no axillary lymphadenopathy. Upper abdomen: There is a small hiatal hernia. Numerous gallstones are noted. Skeletal structures: No lytic or blastic bony lesions are seen. IMPRESSION: 1. Extensive bilateral pulmonary embolus as above. 2. There is a small pulmonary infarct at the right lung base. 3. Trace right pleural effusion. 4. Cholelithiasis. 5. Additional findings as above. ACT 112: Negative or not required by law. Electronically signed by: Behzad Gregorio M.D. 08/03/2021 4:[address] 08/03/21 15:06 CT OF THE LEFT HIP WITH CONTRAST CLINICAL HISTORY: Left hip pain. Recent surgery. Being treated for abscess. COMPARISON STUDY: No previous studies for comparison. TECHNIQUE: Axial images of the left hip were obtained following intravenous injection of 116 cc of Optiray 320 IV. Sagittal and coronal reconstructions were viewed. Automated exposure control was utilized for the study. A dose lowering technique was utilized adhering to the principles of ALARA. FINDINGS: Left hip arthroplasty is noted. Hardware is intact. There is a lucency within the superolateral left acetabulum. Note is made of a fluid and gas containing collection along the anterior aspect of the hip arthroplasty which measures 7.1 x 2.8 cm. This extends to the bone and the hardware as well as the joint space. This extends into the left rectus femoris. This demonstrates peripheral enhancement. No additional fluid collections are present. Note is made of deep venous thrombus within the left common femoral vein. No significant abnormality within visualized portions of the left hemipelvis is identified. IMPRESSION: 1. Status post total left hip arthroplasty. 7.1 x 2.8 cm rim-enhancing fluid collection anterior to the arthroplasty. This extends to the hardware, bone and joint space and is suggestive of an abscess. 2. Deep venous thrombus within the left common femoral vein. 3. Lucency within the superolateral left acetabulum. This could reflect a nondisplaced fracture. ACT 112: Negative or not required by law. Electronically signed by: Robbie Perez M.D. 08/03/2021 4:51 PM Venous Doppler Study 08/03/21 15:06 BILATERAL LOWER EXTREMITY VENOUS DOPPLER CLINICAL HISTORY: swelling, recent surgery COMPARISON STUDY: No previous studies for comparison. TECHNIQUE: Sonography of the deep venous system of the bilateral lower extremities was performed. Compression and augmentation were evaluated. FINDINGS: This exam is compromised by suboptimal penetration. Note is made of deep venous thrombus within the right popliteal vein as well as the right posterior tibial vein. Deep venous thrombus within the left common femoral vein is noted. IMPRESSION: Deep venous thrombus within the right popliteal and posterior tibial veins and left common femoral vein. ACT 112: Negative or not required by law. Electronically signed by: Robbie Perez M.D. 08/03/2021 5:52 PM Supervising Physician Co-Signing Physician Notes Patient was seen and examined. Agree with Lani LABOY, assessment and plan. 61-year-old male with PMH cerebral palsy, HTN, GERD, ANKITA, hypothyroidism, depression, H/O COVID-19 and PE in 09/2020 presented to ER with complaint of shortness of breath. Pt had an elective left hip replacement on 07/04/2021 at [facility] by Dr. Bob Salas, then he was discharged on 07/08/2021 to [facility] for rehab. He had infection complication of the knee after noticed redness, swelling at the incision site. he was started on IV Zosyn, after culture grew Proteus. he was placed on aspirin 81 mg twice daily for VTE prophylaxis. He presented to the ER with worsening shortness of breath for the past 3 days. In the ER CTA chest showed extensive bilateral pulmonary emboli. There is a small pulmonary infarct at the right lung base. Bilateral Doppler of lower extremity on admission showed deep venous thrombus within the right popliteal and posterior tibial veins and left common femoral vein. Left hip CT on admission showed status post total left hip arthroplasty. 7.1 x 2.8 cm rim-enhancing fluid collection anterior to the arthroplasty. This extends to the hardware, bone and joint space and is suggestive of an abscess. He was started on IV heparin drip in the ER. We will get an echocardiogram to assess for RV strain. Will consult pulmonology. Elevated troponin mostly due to PE and hypoxia, will trend troponin. Received IV Zosyn and vancomycin for possible left hip abscess. Will consult orthopedic. Repeat blood culture collected in the ER, will follow it. continue monitor CBC closely. Fall precaution. Will monitor closely in PCU. MD Bryn (1) Deep vein thrombosis (DVT) of both lower extremities Affected thrombotic vein of extremity: unspecified vein of extremity Chronicity: acute Qualified Code(s): I82.403 - Acute embolism and thrombosis of unspecified deep veins of lower extremity, bilateral
[2021-08-03] MEDS ORDERED: ACETAMINOPHEN 325 MG TAB PO PRN (20:10)
[2021-08-03] MEDS ORDERED: POLYETHYLENE (MIRALAX) 17 GM PACK PO PRN (20:10)
[2021-08-03] MEDS ORDERED: HEPARIN SODIUM/DEXTROSE 25,000 UNITS/500 ML BAG IV SCH (20:10)
[2021-08-03] MEDS ORDERED: Heparin IV Adult Wt-Based Standard *NO* Bolus Protocol IV ONE (20:10)
[2021-08-03] MEDS ORDERED: traMADol HCL 50 MG TABLET PO PRN (20:17)
[2021-08-03] MEDS ORDERED: VANCOMYCIN CONSULT ACTIVE PRN (20:28)
[2021-08-03] MEDS ORDERED: VANCOMYCIN HCL 2,500 MG in SODIUM CHLORIDE 0.9% 500 ML IV ONE (21:00)
--- NOTE | 2021-08-03 21:01 | Pharmacy Report ---
Pharmacy Abx Dose Short Note - Date of Service August 03, 2021 - Assessment & Plan Assessment 61 year old M receiving Zosyn/vanco for treatment of possible joint infection Day # 1 of antimicrobial therapy. Plan Vancomycin * vancomycin 2500 mg IV (25 mg/kg) IV x 1 * population pharmacokinetics suggest half-life of 9.9 hr and elimination rate of 0.07 hr-1 * start vancomycin 1250 mg (12.2 mg/kg) IV q12 * concern for accumulation with body habitus * trough prior to 0900 dose on 08/05/21 Pharmacy will continue to follow and will adjust dose/frequency as necessary. Thank you.
[2021-08-03] MEDS: FERROUS SULFATE 325 MG TAB PO SCH (22:01)
[2021-08-03] MEDS: ATORVASTATIN 10 MG TAB PO SCH (22:01)
[2021-08-03] MEDS: ESZOPICLONE 1 MG TAB PO SCH (22:01)
[2021-08-03] MEDS: PIPERACILLIN/TAZOBACTAM 4.5 GM in DEXTROSE 5% 100 ML IV SCH (22:02)
[2021-08-04 01:04] LABS: Partial Thromboplastin Ratio 1.9
[2021-08-04 01:58] LABS: Partial Thromboplastin Time 49.3 Seconds (21.0-31.0)
[2021-08-04] MEDS: PIPERACILLIN/TAZOBACTAM 4.5 GM in DEXTROSE 5% 100 ML IV SCH ×3 (05:32→22:05)
[2021-08-04] MEDS: LEVOTHYROXINE SODIUM 25 MCG TABLET PO SCH (05:33)
[2021-08-04 07:28] LABS: Basophils # (auto) 0.03 K/uL (0-0.2); Basophils % (auto) 0.3 %; Eosinophils # (auto) 0.78 K/uL (0-0.5); Hematocrit (blood only) 35.6 % (42-52); Hemoglobin 10.5 g/dL (14.0-18.0); Immature Granulocytes # (auto) 0.04 K/uL (0.00-0.02); Immature Granulocytes % (auto) 0.4 %; Lymphocytes # (auto) 1.78 K/uL (1.2-3.4); Mean Corpuscular Hemoglobin 23.8 pg (25-34); Mean Corpuscular Hgb Conc 29.5 g/dL (32-36); Mean Corpuscular Volume 80.5 fL (80-100); Mean Platelet Volume 8.9 fL (7.4-10.4); Monocytes # (auto) 0.73 K/uL (0.11-0.59); Monocytes % (auto) 6.6 %; Neutrophils # (auto) 7.74 K/uL (1.4-6.5); Neutrophils % (auto) 69.7 %; Platelet Count 397 K/uL (130-400); RDW Coefficient of Variation 17.1 % (11.5-14.5); RDW Standard Deviation 50.1 fL (36.4-46.3); Red Blood Count 4.42 M/uL (4.7-6.1)
[2021-08-04 07:53] LABS: BUN Creatinine Ratio 15.6 (10-20); Calcium 8.4 mg/dl (8.5-10.1); Creatinine Clr Calc Pharmacy 87.9 ml/min; Est GFR (African American) 104.4 ml/min; Est GFR (Non-African American) 90.1 ml/min; Potassium 3.7 mmol/L (3.5-5.1)
[2021-08-04] MEDS: ASPIRIN 81 MG ECTAB PO SCH (08:00)
[2021-08-04] MEDS: PANTOprazole 40 MG TAB PO SCH (08:01)
[2021-08-04] MEDS: METOPROLOL SUCC 50MG EXT REL TAB PO SCH (08:01)
[2021-08-04] MEDS: FERROUS SULFATE 325 MG TAB PO SCH ×2 (08:01→21:00)
[2021-08-04] MEDS: VANCOMYCIN HCL 1,250 MG in SODIUM CHLORIDE 0.9% 250 ML IV SCH ×2 (08:01→20:57)
[2021-08-04] MEDS: FUROSEMIDE 40 MG TAB PO SCH (08:01)
--- NOTE | 2021-08-04 10:22 | Pulmonary Consultation ---
Date of Consultation August 04, 2021 Assessment & Plan (1) Pulmonary embolism and infarction: Impression: 61-year-old male status post recent hip arthroplasty now with DVT and PE. Review of his vital signs did demonstrate some transient hypotension but this appears to have resolved. The patient states his breathing is better. He is not significantly tachycardic. Recommendations: 1. Acute PE: Suspect related to the patient's recent hip arthroplasty. We will need to clarify the status on his prior PE. If this is his second event, would make a case for lifelong anticoagulation. Patient's initial troponin was elevated at 0.057 but is now decreased to 0.044. His BNP was elevated at 2769. Recommend checking echocardiogram. Given his hemodynamic stability, would recommend IV heparin currently. Should he deteriorate with decreasing blood pressure tachycardia or oxygen requirement, could consider systemic thrombolysis but I think he is doing okay currently. 2. Hypoxemic respiratory failure: Continue supplemental oxygen titrated to keep saturations at or above 88%. 3. Sleep disordered breathing: Continue CPAP nightly. 4. Pulmonary infarct: Repeat CT scan in 3 months would be reasonable. We will continue to follow with you. Feel free to contact us with questions or concerns in the interim. History of Present Illness Attending Physician: Cara Clemente MD History of Present Illness Asked by hospitalist to evaluate this patient with extensive PE. History is obtained from discussion with the patient and reviewed electronic medical record. The patient is a 61-year-old male with a history of cerebral palsy hypertension and sleep disordered breathing. He was diagnosed with a PE in September 2020 in association with Covid according to his clinical notes although I do not have prior documentation available to review. He underwent hip arthroplasty last month and was sent to the emergency room by his correction due to complaints of shortness of breath. CT angiogram was performed which demonstrated significant PE. The patient was initiated on heparin and admitted to the hospitalist service. He does have a history of sleep disordered breathing and used CPAP overnight. He states this morning that his breathing is much better. He is on oxygen which she does not use normally. Review of his vital signs indicated borderline hypotension however I rechecked his blood pressure twice during our evaluation with numbers in the 1 10-1 20 systolic range with a heart rate in the 90s. The patient denies syncope or presyncope. No chest pain or palpitation. No significant lower extremity edema Allergies Allergy/AdvReac Type Severity Reaction Status Date / Time No Known Allergies Allergy Verified 08/03/21 14:39 Home Medications Medication Instructions Recorded Confirmed Type atorvastatin 10 mg tablet 10 mg PO PM 12/12/18 08/03/21 History ferrous sulfate 325 mg (65 mg 325 mg PO BID 12/12/18 08/03/21 History iron) tablet (iron) levothyroxine 25 mcg tablet 25 mcg PO QAM 12/12/18 08/03/21 History (Synthroid) metoprolol succinate 100 mg 100 mg PO QAM 12/12/18 08/03/21 History tablet,extended release 24 hr omeprazole 20 mg tablet,delayed 40 mg PO QAM 12/12/18 08/03/21 History release aspirin 81 mg tablet,delayed 81 mg PO BID 08/03/21 08/03/21 History release eszopiclone 1 mg tablet 1 mg PO HS 08/03/21 08/03/21 History furosemide 40 mg tablet 40 mg PO QAM 08/03/21 08/03/21 History piperacillin-tazobactam 3.375 gram 3.375 g IV Q12H 08/03/21 08/03/21 History intravenous solution polyethylene glycol 3350 17 17 g PO QAM 08/03/21 08/03/21 History gram/dose oral powder (Miralax) sodium chloride 0.9 % (flush) 10 ml IV Q12H 08/03/21 08/03/21 History (Normal Saline Flush) tramadol 50 mg tablet 50 mg PO Q6H PRN 08/03/21 08/03/21 History Patient History Medical History Depression GERD (gastroesophageal reflux disease) History of pancreatitis History of torsion of testis Hyperlipidemia Hypertension Hypothyroidism Mild cerebral palsy Osteoarthritis Surgical History H/O unilateral orchiectomy History of colonoscopy W/ POLYPECTOMY History of tonsillectomy Family History Mother Family history of diabetes mellitus Sister Family history of diabetes mellitus Social History Smoking Status: Never smoker Second Hand Exposure: Yes ( A CHILD - MOTHER WAS A SMOKER); Hx Alcohol Use: No Hx Substance Use: No Preferred Language: Portuguese Communication Ability: Effective Copyholder Required: No Beliefs That Will Affect Care: None Current Living Situation: Alone Other Information That Helps Us Care for You: No Feels Safe at Home: Yes Safety Concerns: Feels Safe At This Time Assistive Devices: Glasses Review of Systems Review of Systems: All systems reviewed & are unremarkable except as noted in HPI & below Physical Exam Physical Exam: RLE NVSI +EHL/FHL/TA/GS SILT grossly, +2 DP pulse, compartments soft NT, dressing cdi. Constitutional: WD/WN, vitals as above Eyes: PERRL, conjunctivae normal, anicteric sclerae ENMT: external ear and nose normal, oropharynx normal Neck: trachea midline, no thyromegaly Respiratory: + tachypneic Auscultation: lungs clear to auscultation bilaterally Cardiovascular: RRR, no murmur, no edema Gastrointestinal (Abdomen): normal bowel sounds, soft, nontender, no hepatosplenomegaly Musculoskeletal: no cyanosis or clubbing, extremities motor strength 5/5 Skin: no rashes, warm and dry Neurologic: patellar DTR's 2+ bilat, sensation intact Psychiatric: A+Ox3, euthymic affect Lymphatic: no cervical or axillary lymphadenopathy Results & Data Results & Data ([facility]) Vital Signs (Past 12 Hours) Vital Signs Temp Pulse Pulse Resp BP Pulse Ox 08/04/21 08:00 75 08/04/21 07:59 37.0 C 82 18 96/68 L 91 08/04/21 04:23 36.4 C L 85 25 H 114/74 94 08/04/21 03:46 81 24 91 08/04/21 01:10 87 08/03/21 23:29 36.4 C L 82 24 118/63 93 08/03/21 23:20 82 22 92 Laboratory Results 08/04/21 06:53 08/04/21 06:[address] ANGIOGRAM OF THE CHEST 08/03/21 CLINICAL HISTORY: Cough. Dyspnea. COMPARISON STUDY: Chest x-ray dated 08/03/2021 TECHNIQUE: Following the IV administration of 116 cc of Optiray 320, CT angiogram of the chest was performed from the upper abdomen to the thoracic inlet utilizing the pulmonary embolus protocol. Images are reviewed in the axial, sagittal, and coronal planes. 3-D MIPS images are created and assessed. IV contrast was administered without complication. A dose lowering technique was utilized adhering to the principles of ALARA. CT DOSE: 1454.46 mGy.cm FINDINGS: Thyroid: Imaged portions of the thyroid gland are normal in size and at tenuation. Thoracic aorta: The thoracic aorta is normal in caliber and demonstrates standard 3-vessel arch anatomy. No dissection is seen. Pulmonary vasculature: The pulmonary trunk is normal in caliber. There is a large thrombus within the right main pulmonary artery. This extends into the right upper, middle, and lower lobe pulmonary arteries. Segmental and subsegmental pulmonary emboli are seen within the right upper, middle, and lower lobes. There is thrombus within the distal left main pulmonary artery. This extends into the left upper and left lower lobe pulmonary arteries into segment al and subsegmental branches. Heart: The heart is normal in size and without pericardial effusion. There are scattered coronary artery calcifications. Lungs and pleural spaces: Evaluation of the lung parenchyma is significantly degraded by motion artifact. The trachea and central airways are clear. A wedge- shaped subpleural opacity at the right lung base on image #100 likely represents a pulmonary infarct. Mild atelectasis is noted at the left lung base. There is trace right pleural effusion. Mediastinum: There is no mediastinal lymphadenopathy. Dalila: Clear. Axillae: There is no axillary lymphadenopathy. Upper abdomen: There is a small hiatal hernia. Numerous gallstones are noted. Skeletal structures: No lytic or blastic bony lesions are seen. IMPRESSION: 1. Extensive bilateral pulmonary embolus as above. 2. There is a small pulmonary infarct at the right lung base. 3. Trace right pleural effusion. 4. Cholelithiasis. 5. Additional findings as above. Duplex ultrasound of the lower extremities demonstrated bilateral lower extremity DVTs PG Care Time/CCT Total # of Minutes Spent Total Time Spent with Patient: Total time spent is greater than 50% in coordination of care (as documented) at patient's floor/unit and/or counseling patient: Coding Level of Care Code 45996 Inpt Consult Level 4 Diagnoses Pulmonary embolism and infarction I26.99
--- NOTE | 2021-08-04 13:05 | Orthopedic Consultation ---
Date of Consultation August 04, 2021 Assessment & Plan (1) Infection of prosthetic total hip joint: Probable infection of the left total hip arthroplasty. CT scan reviewed of the left hip. Noted fluid collection that appears to go down to the level of the joint itself. I had a discussion with the patient and his friend who helps take care of him. We discussed that this is likely infection and would need to be removed. To do this an irrigation and debridement of the left DANIA would have to be undertaken and most likely femoral head and liner change at the very minimum. We also discussed that if the prosthesis has loosened because of the infection, that he would possibly need an explant of the total hip arthroplasty itself with implantation of antibiotic spacer. Currently, we do not have a [facility] physician that is credentialed for Anterior hip replacement. I discussed with the patient that he may need transfer to a tertiary facility for further care of this. We discussed that we would reach out to one of the [facility] physician group Orthopedic physicians who is credentialed in Anterior hip arthroplasty to see if he would be able to take care of this gentleman. We discussed that if he was not, that he would likely need to be transferred. Question the need for joint aspiration of the left hip if patient will need to transferred. The patient and his friend were very understanding and agreed to this plan. Continue to give IV antibiotics and follow blood cultures at this time. We will get a left hip plain film as well as ESR/CRP. Supervising Physician Co-Signing Physician Notes Patient seen and examined. Agree with JOHN Bill's note as above. His left anterior hip incision overall does not look terribly impressive. The majority incision is well-healed. He has a small area of scab at the most proximal end of the incision, about 10 mm in length and 5 mm in width. No active or expressible drainage. No significant erythema in the area. He does report that the wound has been draining, but the drainage improved on a 7-day course of antibiotics. The drainage was cultured and was consistent with Proteus. Current CT scan shows a fluid collection extending down to the femur and hip prosthesis with peripheral enhancement, consistent with abscess. ESR and CRP are elevated, at 58 and 5.51 respectively. This presentation looks consistent with a periprosthetic infection. He will need irrigation and debridement of the wound, and at least partial hardware exchange. We currently do not have a surgeon in our group credentialed at [facility] who is comfortable with an anterior hip approach. We are currently reaching out to some the surgeons in the other groups that may be able to take care of him. If not, he will need to be transferred to a tertiary care facility. N.p.o. after midnight in case he can have surgery tomorrow. History of Present Illness Reason for Consultation: Presumed Left DANIA infection Attending Physician: Cara Clemente MD History of Present Illness Patient is 61-year-old male with PMH cerebral palsy, HTN, GERD, ANKITA, hypothyroidism, depression, H/O COVID-19 and PE in 09/2020 presented to ER with complaint of shortness of breath. Patient had undergone a left anterior total hip arthroplasty by Dr. Cameron Salas at [facility] on 07/04/2021. The patient had a normal postoperative course and was discharged on 08 July. He was transferred to [facility] where he was undergoing rehabilitation. The patient states that where the incision is, some of his abdomen was overlapping and that is an area that causes increased perspiration for him. He states that the area became increasingly reddened and had a little bit of drainage. He was initially started on antibiotics after the wound drainage was cultured for Proteus species. He had an orthopedic follow-up visit in July where an ultrasound was then ordered at that time. The ultrasound showed no fluid collection but did show evidence of cellulitis. The patient states that over the last several days he became increasingly weaker and short of breath. He denies having fevers however apparently he was noted to have a fever at the [facility] facility. Patient denies chills or rigors. He states that his hands and feet were cold but other than that he did not feel febrile. He states that he was able to put weight on the left lower extremity for ambulation however it got to the point where trying to flex the hip itself caused him moderate pain. It was noted he had bilateral lower extremity edema and he had also developed that dry cough. He was then transferred from his [facility] facility to [facility] emergency department. Multiple radiologic studies were performed showing extensive pulmonary embolus bilateral and bilateral lower extremity DVTs. CT scan showed a fluid collection that appears to go down to the left DANIA prosthesis. He was thusly started on IV antibiotics and admitted for further care. We have been asked to see him for his DANIA infection. Allergies Allergy/AdvReac Type Severity Reaction Status Date / Time No Known Allergies Allergy Verified 08/03/21 14:39 Home Medications Medication Instructions Recorded Confirmed Type atorvastatin 10 mg tablet 10 mg PO PM 12/12/18 08/03/21 History ferrous sulfate 325 mg (65 mg 325 mg PO BID 12/12/18 08/03/21 History iron) tablet (iron) levothyroxine 25 mcg tablet 25 mcg PO QAM 12/12/18 08/03/21 History (Synthroid) metoprolol succinate 100 mg 100 mg PO QAM 12/12/18 08/03/21 History tablet,extended release 24 hr omeprazole 20 mg tablet,delayed 40 mg PO QAM 12/12/18 08/03/21 History release aspirin 81 mg tablet,delayed 81 mg PO BID 08/03/21 08/03/21 History release eszopiclone 1 mg tablet 1 mg PO HS 08/03/21 08/03/21 History furosemide 40 mg tablet 40 mg PO QAM 08/03/21 08/03/21 History piperacillin-tazobactam 3.375 gram 3.375 g IV Q12H 08/03/21 08/03/21 History intravenous solution polyethylene glycol 3350 17 17 g PO QAM 08/03/21 08/03/21 History gram/dose oral powder (Miralax) sodium chloride 0.9 % (flush) 10 ml IV Q12H 08/03/21 08/03/21 History (Normal Saline Flush) tramadol 50 mg tablet 50 mg PO Q6H PRN 08/03/21 08/03/21 History Patient History Medical History (Updated 08/04/21 @ 13:17 by Simone Bill PA-C) Depression GERD (gastroesophageal reflux disease) History of pancreatitis History of torsion of testis Hyperlipidemia Hypertension Hypothyroidism Mild cerebral palsy Osteoarthritis Surgical History H/O unilateral orchiectomy History of colonoscopy W/ POLYPECTOMY History of tonsillectomy Family History Mother Family history of diabetes mellitus Sister Family history of diabetes mellitus Social History Smoking Status: Never smoker Second Hand Exposure: Yes ( A CHILD - MOTHER WAS A SMOKER); Hx Alcohol Use: No Hx Substance Use: No Preferred Language: Welsh Communication Ability: Effective Row Boss Hoeing Required: No Beliefs That Will Affect Care: None Current Living Situation: Alone How many Children do You have: 0 Other Information That Helps Us Care for You: No Feels Safe at Home: Yes Safety Concerns: Feels Safe At This Time Assistive Devices: Walker Physical Exam Physical Exam: On examination, the patient is an obese white male who is alert and oriented x3. No acute distress, pleasant and cooperative. He is accompanied by his friend at this time who also gives some history. On examination of the patient's left lower extremity, he has noted edema down to the foot and ankle. The left anterior hip wound is closed at this time and well-healed for a good portion of it. He does have a small portion at the proximal apex that appears to have widened and has some eschar on it. No current drainage at this time. He does not have any overt erythema around the wound but is mild. He has no pain on palpation of the wound area and no pain on palpation of the anterior thigh and lateral hip at this time. I am able to take him through internal and external rotation without discomfort. He has some mild discomfort with abduction and adduction. With him sitting up in bed, he has the hip to approximately 70 degrees of flexion. When I attempt to take him through flexion of the hip, I can get him to approximately 10 degrees past his current position before he begins having moderate pain. Mild discomfort returning him to his original position. Results & Data ([facility]) Vital Signs (Past 12 Hours) Vital Signs Temp Pulse Pulse Resp BP Pulse Ox 08/04/21 11:56 36.5 C 85 18 112/64 95 08/04/21 08:00 75 08/04/21 07:59 37.0 C 82 18 96/68 L 91 08/04/21 04:23 36.4 C L 85 25 H 114/74 94 08/04/21 03:46 81 24 91 08/04/21 01:10 87 Diagnostic Findings Patient: ЕЛЕНА FISHER Date: 08/03/21MR#: [id number]: 41 LICHA GASPAR 305Acct ID:[id number]: Date: 1[facility] Zip: [place] [id number]: [id number]: EDSex: MRoom/Bed:Att Phy:Diagnosis: SOB CoughPri Phy: Radha Dyson, MDService Date: 08/03/21Fa Phy:Interpreting Phy: Robbie Perez MDAdmit Phy: Ordering Phy: Carlos Riddle M.D. cc: ~ CT OF THE LEFT HIP WITH CONTRAST CLINICAL HISTORY: Left hip pain. Recent surgery. Being treated for abscess. COMPARISON STUDY: No previous studies for comparison. TECHNIQUE: Axial images of the left hip were obtained following intravenous injection of 116 cc of Optiray 320 IV. Sagittal and coronal reconstructions were viewed. Automated exposure control was utilized for the study. A dose lowering technique was utilized adhering to the principles of ALARA. FINDINGS: Left hip arthroplasty is noted. Hardware is intact. There is a lucency within the superolateral left acetabulum. Note is made of a fluid and gas containing collection along the anterior aspect of the hip arthroplasty which measures 7.1 x 2.8 cm. This extends to the bone and the hardware as well as the joint space. This extends into the left rectus femoris. This demonstrates peripheral enhancement. No additional fluid collections are present. Note is made of deep venous thrombus within the left common femoral vein. No significant abnormality within visualized portions of the left hemipelvis is identified. IMPRESSION: 1. Status post total left hip arthroplasty. 7.1 x 2.8 cm rim-enhancing fluid collection anterior to the arthroplasty. This extends to the hardware, bone and joint space and is suggestive of an abscess. 2. Deep venous thrombus within the left common femoral vein. 3. Lucency within the superolateral left acetabulum. This could reflect a nondisplaced fracture. CT ANGIOGRAM OF THE CHEST CLINICAL HISTORY: Cough. Dyspnea. COMPARISON STUDY: Chest x-ray dated 08/03/2021 TECHNIQUE: Following the IV administration of 116 cc of Optiray 320, CT angiogram of the chest was performed from the upper abdomen to the thoracic inlet utilizing the pulmonary embolus protocol. Images are reviewed in the axial, sagittal, and coronal planes. 3-D MIPS images are created and assessed. IV contrast was administered without complication. A dose lowering technique was utilized adhering to the principles of ALARA. CT DOSE: 1454.46 mGy.cm FINDINGS: Thyroid: Imaged portions of the thyroid gland are normal in size and attenuation. Thoracic aorta: The thoracic aorta is normal in caliber and demonstrates standard 3-vessel arch anatomy. No dissection is seen. Pulmonary vasculature: The pulmonary trunk is normal in caliber. There is a large thrombus within the right main pulmonary artery. This extends into the right upper, middle, and lower lobe pulmonary arteries. Segmental and subsegmental pulmonary emboli are seen within the right upper, middle, and lower lobes. There is thrombus within the distal left main pulmonary artery. This extends into the left upper and left lower lobe pulmonary arteries into segmental and subsegmental branches. Heart: The heart is normal in size and without pericardial effusion. There are scattered coronary artery calcifications. Lungs and pleural spaces: Evaluation of the lung parenchyma is significantly degraded by motion artifact. The trachea and central airways are clear. A wedge- shaped subpleural opacity at the right lung base on image #100 likely represents a pulmonary infarct. Mild atelectasis is noted at the left lung base. There is trace right pleural effusion. Mediastinum: There is no mediastinal lymphadenopathy. Dalila: Clear. Axillae: There is no axillary lymphadenopathy. Upper abdomen: There is a small hiatal hernia. Numerous gallstones are noted. Skeletal structures: No lytic or blastic bony lesions are seen. IMPRESSION: 1. Extensive bilateral pulmonary embolus as above. 2. There is a small pulmonary infarct at the right lung base. 3. Trace right pleural effusion. 4. Cholelithiasis. 5. Additional findings as above. BILATERAL LOWER EXTREMITY VENOUS DOPPLER CLINICAL HISTORY: swelling, recent surgery COMPARISON STUDY: No previous studies for comparison. TECHNIQUE: Sonography of the deep venous system of the bilateral lower extremities was performed. Compression and augmentation were evaluated. FINDINGS: This exam is compromised by suboptimal penetration. Note is made of deep venous thrombus within the right popliteal vein as well as the right posterior tibial vein. Deep venous thrombus within the left common femoral vein is noted. IMPRESSION: Deep venous thrombus within the right popliteal and posterior tibial veins and left common femoral vein.
--- NOTE | 2021-08-04 13:17 | Electrocardiogram Report ---
Test Reason : Blood Pressure : / mmHG Vent. Rate : 095 BPM Atrial Rate : 095 BPM P-R Int : 136 ms QRS Dur : 108 ms QT Int : 450 ms P-R-T Axes : 043 024 012 degrees QTc Int : 565 ms Normal sinus rhythm Inferior-posterior infarct , age undetermined Incomplete right bundle branch block Prolonged QT Abnormal ECG When compared with ECG of 16-DEC-2018 13:21, Vent. rate has increased BY 38 BPM Incomplete right bundle branch block is now Present Inferior-posterior infarct is now Present Confirmed by Juan Miguel Dotson ([id number]) on 08/04/2021 1:16:56 PM Referred By: ER Confirmed By:Juan Miguel Dotson
[2021-08-04] MEDS: HEPARIN SODIUM/DEXTROSE 25,000 UNITS/500 ML BAG IV SCH (14:19)
--- NOTE | 2021-08-04 15:31 | Electrocardiogram Report ---
Test Reason : Blood Pressure : / mmHG Vent. Rate : 083 BPM Atrial Rate : 083 BPM P-R Int : 136 ms QRS Dur : 108 ms QT Int : 468 ms P-R-T Axes : 050 018 010 degrees QTc Int : 549 ms Normal sinus rhythm Incomplete right bundle branch block Nonspecific ST and T wave abnormality Prolonged QT Abnormal ECG When compared with ECG of 03-AUG-2021 13:35, T wave inversion less evident in Anterolateral leads Confirmed by Juan Miguel Dotson ([id number]) on 08/04/2021 3:30:53 PM Referred By: REFERRED SELF Confirmed By:Juan Miguel Dotson
--- NOTE | 2021-08-04 18:39 | XRay Report ---
XR hip LT min 2V CLINICAL HISTORY: question of loosening/ acetabular fx. Left hip pain. COMPARISON STUDY: Left hip CT 08/03/2021. FINDINGS: There is a left total hip arthroplasty. The hardware appears intact. No fracture or disloca tion within the left hip. No abnormal periprosthetic lucency. Soft tissues are unremarkable. IMPRESSION: 1. Left total arthroplasty. The hardware appears intact. 2. No definite fractures within the left hip. ACT 112: Negative or not required by law. Electronically signed by: Dominick Stevens M.D. 08/04/2021 6:37 PM
--- NOTE | 2021-08-04 19:22 | Hospitalist Progress Note ---
Date of Service August 04, 2021 Assessment & Plan (1) Pulmonary embolism and infarction: (2) Deep vein thrombosis (DVT) of both lower extremities: Plan: Patient is 61-year-old male with PMH cerebral palsy, HTN, GERD, ANKITA, hypothyroidism, depression, H/O COVID-19 and PE in 09/2020 presented to ER with complaint of shortness of breath x several days. H/O left hip replacement on 07/04/2021 Patient with history bilateral PE and COVID-19 pneumonia in 09/2020. Outpatient notes reviewed reports that CTA chest showed extensive R and probably minimal L pulmonary emboli including a large right pulmonary artery embolus. Ground glass infiltrates consistent with hx of COVID 19. Negative Dopplers. Echo: EF >65%, normal wall thickness, and wall motion, mild mitral and aortic valve regurge Present on admission with shortness of breath, tachycardia and tachypneic CTA chest: Extensive bilateral pulmonary embolus. There is a small pulmonary infarct at the right lung base. Trace right pleural effusion. BLE venous Doppler: Deep venous thrombus within the right popliteal and posterior tibial veins and left common femoral vein. Echo showed RV failure and severe pulmonary hypertension negative COVID-19 PCR, troponin 0.06, BNP: 2769, negative procalcitonin Continue IV heparin drip Pulmonary on board as per pulm if pt deteriorates with decreasing blood pressure tachycardia or increase oxygen requirement, could consider systemic thrombolysis Will need repeat CT scan in 3 months for follow-up of the pulmonary infarct This is his second blood clot, probably will need lifelong anticoagulant Continue oxygen supplement we will monitor closely in telemetry (3) Abscess of left hip: Plan: Infection of prosthetic total hip joint: Probable infection of the left total hip arthroplasty. H/O elective left hip replacement on 07/04/2021 at [facility] by Dr. Bob Salas. Developed redness and swelling at incision site, fever. Culture of discharge obtained+Proteus. He was seen by Ortho 07/26/2021 and it is reported ultrasound showed cellulitis without fluid collection. He was started on IV Zosyn Left hip CT on 08/03 showed Status post total left hip arthroplasty. 7.1 x 2.8 cm rim-enhancing fluid collection anterior to the arthroplasty. This extends to the hardware, bone and joint space and is suggestive of an abscess. Deep venous thrombus within the left common femoral vein. Lucency within the superolateral left acetabulum. This could reflect a nondisplaced fracture. Ortho on board Elevated ESR and CRP Recommend to transfer to tertiary care center since no one from the group has credential to perform an anterior hip procedure approach Case discussed with Hospitalist Dr. Shoemaker from [facility] that accepted the patient on transfer (Waiting for bed) Continue IV antibiotic with Zosyn and Vanco for now Continue tramadol, Tylenol as needed pain Elevated troponin Mostly due to the large extensive PE troponin: 0.06 then dropped to 0.04 Echo showed no LV wall motion abnormality with ejection fraction 60 to 65% Currently on IV heparin drip due to PE and DVT Denies any chest pain Diarrhea Patient reports loose stools Obtain C. difficile and stool cultures HTN Continue metoprolol succinate, Lasix Dyslipidemia Continue atorvastatin ANKITA Continue CPAP at bedtime Hypothyroidism Continue levothyroxine DVT Prophylaxis On IV heparin drip for PE/DVT Full code as per discussion with pt Follows with Dr Fredo Varghese for routine care Disposition Waiting for bed to transfer to [place] Admission and Anticipated Discharge Date Admission Date: August 03, 2021 Subjective Patient was seen and examined for follow-up of shortness of breath and left hip infection Lying in bed no acute distress Patient said that he is slightly felt a little better today compared to yesterday He continues to require oxygen supplement Discussed with Ortho that recommend transfer to tertiary center for the left hip infection No one has credential to perform an anterior hip procedure approach Case discussed with Dr. Shoemaker in [facility] that accepted the patient transfer With patient permission I updated his friend Kenny and answered all his questions Patient denies any chest pain, palpitation, dizziness, and fever. Review of Systems Review of Systems: All systems reviewed & are unremarkable except as noted in Subjective Physical Exam Physical Exam: General- No acute distress Head- atraumatic Eyes- PERRL, EOMI, ENT- oropharynx clear Neck- supple, no JVD Lungs- +diminished BS Heart- regular rhythm; no murmur Abdomen- normal bowel sounds, soft, nontender Extremities- no calf tenderness, Anterior hip with surgical incision without significant erythema or warmth, + induration, no significant tenderness to palpation, bilateral lower extremities with edema, distal pulses palpable Neuro- alert, oriented x 3; PERRL, EOMI; no facial palsy; no dysarthria Skin- warm & dry Results & Data Results & Data ([facility]) Vital Signs (Past 12 Hours) Vital Signs Temp Pulse Pulse Resp BP Pulse Ox 08/04/21 16:44 36.9 C 85 18 112/58 L 91 08/04/21 16:02 83 08/04/21 11:56 36.5 C 85 18 112/64 95 08/04/21 08:00 75 08/04/21 07:59 37.0 C 82 18 96/68 L 91 (1) Deep vein thrombosis (DVT) of both lower extremities Affected thrombotic vein of extremity: unspecified vein of extremity Chronicity: acute Qualified Code(s): I82.403 - Acute embolism and thrombosis of unspecified deep veins of lower extremity, bilateral
[2021-08-04] MEDS: ATORVASTATIN 10 MG TAB PO SCH (21:00)
[2021-08-04] MEDS: ESZOPICLONE 1 MG TAB PO SCH (23:00)
[2021-08-05] MEDS: LEVOTHYROXINE SODIUM 25 MCG TABLET PO SCH (05:20)
[2021-08-05] MEDS: PIPERACILLIN/TAZOBACTAM 4.5 GM in DEXTROSE 5% 100 ML IV SCH ×3 (05:49→22:58)
[2021-08-05] MEDS: PANTOprazole 40 MG TAB PO SCH (08:10)
[2021-08-05] MEDS: FERROUS SULFATE 325 MG TAB PO SCH ×2 (08:10→21:02)
[2021-08-05] MEDS: ASPIRIN 81 MG ECTAB PO SCH (08:10)
[2021-08-05] MEDS: METOPROLOL SUCC 50MG EXT REL TAB PO SCH (08:10)
[2021-08-05 08:56] LABS: Hematocrit (blood only) 33.2 % (42-52); Hemoglobin 10.1 g/dL (14.0-18.0); Mean Corpuscular Hemoglobin 23.9 pg (25-34); Mean Corpuscular Hgb Conc 30.4 g/dL (32-36); Mean Corpuscular Volume 78.5 fL (80-100); Mean Platelet Volume 9.1 fL (7.4-10.4); Platelet Count 445 K/uL (130-400); RDW Coefficient of Variation 17.1 % (11.5-14.5); RDW Standard Deviation 48.8 fL (36.4-46.3); Red Blood Count 4.23 M/uL (4.7-6.1); White Blood Count 9.46 K/uL (4.8-10.8)
--- NOTE | 2021-08-05 09:02 | Pulmonology Progress Note ---
Date of Service August 05, 2021 Assessment & Plan (1) Pulmonary embolism and infarction: Plan: Impression: 61-year-old male status post recent hip arthroplasty now with DVT and PE. He is responding well to heparin therapy without complications currently. Recommendations: 1. Acute PE: Suspect related to the patient's recent hip arthroplasty. Suspect this is a second event. Would continue heparin for now as the patient may require some surgical intervention in the future. Once his surgical issues are resolved and he is no longer in need of invasive procedures, would recommend transitioning to oral anticoagulants. Options would include Coumadin or DOAC. Again the details on his initial PE are somewhat unclear. If we can substantiate that he did have an initial event 8 or 9 months ago and this would be his second event, would recommend lifelong anticoagulation. 2. Hypoxemic respiratory failure: Continue supplemental oxygen titrated to keep saturations at or above 88%. 3. Sleep disordered breathing: Continue CPAP nightly. 4. Pulmonary infarct: Repeat CT scan in 3 months would be reasonable. 5. Secondary pulmonary hypertension: Recommend follow-up echocardiogram in 3 to 4 months to ensure his PA pressures are decreasing. The patient is at risk for chronic thromboembolic pulmonary hypertension. Patient is being transferred to [facility]. Pulmonary will sign off at this point time. It may be reasonable to have pulmonary follow him at [facility]. Feel free to reach out to us if we can be of additional assistance while the patient is here. Admission and Anticipated Discharge Date Admission Date: August 03, 2021 Subjective Patient seen and examined. EMR reviewed. He is doing well clinically from a respiratory standpoint. His tachypnea is resolved. He is not had any chest pain palpitations syncope or presyncope. No hemoptysis or bleeding complications associated with the heparin. Unfortunately, the patient's orthopedic issues appear to exceed the capacity of our local surgeons to care for and he is being transferred to [facility] once a bed opens up. Review of Systems Review of Systems: Negative except as noted above Physical Exam Physical Exam: RLE NVSI +EHL/FHL/TA/GS SILT grossly, +2 DP pulse, compartments soft NT, dressing cdi. Constitutional: WD/WN, vitals as above Eyes: PERRL, conjunctivae normal, anicteric sclerae ENMT: external ear and nose normal, oropharynx normal Neck: trachea midline, no thyromegaly Respiratory: + tachypneic Auscultation: lungs clear to auscultation bilaterally Cardiovascular: RRR, no murmur, no edema Gastrointestinal (Abdomen): normal bowel sounds, soft, nontender, no hepatosplenomegaly Musculoskeletal: no cyanosis or clubbing, extremities motor strength 5/5 Skin: no rashes, warm and dry Neurologic: patellar DTR's 2+ bilat, sensation intact Psychiatric: A+Ox3, euthymic affect Lymphatic: no cervical or axillary lymphadenopathy Results & Data Results & Data ([facility]) Vital Signs (Past 12 Hours) Vital Signs Temp Pulse Pulse Resp BP Pulse Ox 08/05/21 07:53 36.5 C 74 18 127/65 98 08/05/21 03:44 36.9 C 75 20 101/66 91 08/05/21 03:18 76 26 H 92 08/05/21 00:00 82 08/04/21 23:31 88 24 94 08/04/21 23:19 37.5 C 84 18 99/65 L 93 Laboratory Results 08/05/21 08:22 Diagnostic Findings Echocardiogram showed an EF of 6065% with grade 1 diastolic dysfunction. Akinesis of the RV free wall consistent with Jung sign. Mild mitral regurgitation and mild aortic insufficiency. Severe left atrial enlargement with severe pulmonary hypertension and PA pressure of 61. PG Care Time/CCT Total # of Minutes Spent Total Time Spent with Patient: Total time spent is greater than 50% in coordination of care (as documented) at patient's floor/unit and/or counseling patient: Coding Level of Care Code 68495 Subseq Hosp Care Lvl 3 Diagnoses Pulmonary embolism and infarction I26.99
[2021-08-05 09:14] LABS: BUN Creatinine Ratio 13.4 (10-20); C Reactive Protein 4.83 mg/dl (0-0.29); Calcium 8.9 mg/dl (8.5-10.1); Creatinine Clr Calc Pharmacy 80.1 ml/min; Est GFR (African American) 94.4 ml/min; Est GFR (Non-African American) 81.4 ml/min; Potassium 3.9 mmol/L (3.5-5.1)
[2021-08-05 09:18] LABS: Partial Thromboplastin Ratio 1.8
[2021-08-05 09:19] LABS: Partial Thromboplastin Time 48.1 Seconds (21.0-31.0)
[2021-08-05] MEDS ORDERED: VANCOMYCIN TROUGH ONE (09:30)
[2021-08-05] MEDS: VANCOMYCIN HCL 1,250 MG in SODIUM CHLORIDE 0.9% 250 ML IV SCH ×2 (09:35→21:01)
--- NOTE | 2021-08-05 09:51 | Pharmacy Report ---
Pharmacy Vanc AUC Short Note - Date of Service August 05, 2021 - Assessment & Plan Assessment 61 year old M receiving Vancomycin for treatment of joint infection. Day #3 of antimicrobial therapy. Patient received Vancomycin loading dose then 1250 mg IV q12h, total of 3 doses (out of which only 2 doses were maintenance). Obtained a trough level this AM before the 3rd maintenance dose. Laboratory Tests 08/05/21 08:22 Vancomycin Trough 11.9 Plan Vancomycin * AUC/TANIYA is the preferred PK/PD target for vancomycin * AUC guided dosing is effective and associated with decreased risk of nephrotoxicity compared to traditional trough targets * Trough level of 11.9 mcg/mL is predicted to achieve target AUC/TANIYA of 497 mg/L.hr and may be associated with a 10% risk of nephrotoxicity. * Goal AUC is 400 - 600 mg/L.hr. * Trough Vanco level today was obtained before steady state. Expect trough to rise to around 15 mcg/ml in a few more doses. * Continue dose of Vancomycin 1250 mg IV every 12 hours. * Trough Vanco level ordered for: 08/07/21 before dose at 09:00 AM Pharmacy will continue to follow and will adjust dose/frequency as necessary. Thank you.
[2021-08-05] MEDS: HEPARIN SODIUM/DEXTROSE 25,000 UNITS/500 ML BAG IV SCH (11:05)
--- NOTE | 2021-08-05 15:21 | Orthopedic Progress Note ---
Date of Service August 05, 2021 Assessment & Plan (1) Infection of prosthetic total hip joint: Plan: Continue current IV antibiotics. Patient planning for transfer to [facility] when bed available. Please call with any questions. Admission and Anticipated Discharge Date Admission Date: August 03, 2021 Subjective Patient lying in bed awake and alert. No new complaints today. Patient has been approved for transfer to [facility] and is waiting on a bed. Physical Exam Physical Exam: No new changes to the exam. Results & Data ([facility]) Vital Signs (Past 12 Hours) Vital Signs Temp Pulse Pulse Resp BP Pulse Ox 08/05/21 11:43 36.8 C 98 H 16 110/70 95 08/05/21 08:00 70 08/05/21 07:53 36.5 C 74 18 127/65 98 08/05/21 03:44 36.9 C 75 20 101/66 91
--- NOTE | 2021-08-05 20:58 | Hospitalist Progress Note ---
Date of Service August 05, 2021 Assessment & Plan (1) Pulmonary embolism and infarction: (2) Deep vein thrombosis (DVT) of both lower extremities: Plan: Patient is 61-year-old male with PMH cerebral palsy, HTN, GERD, ANKITA, hypothyroidism, depression, H/O COVID-19 and PE in 09/2020 presented to ER with complaint of shortness of breath x several days. H/O left hip replacement on 07/04/2021 Patient with history bilateral PE and COVID-19 pneumonia in 09/2020. Outpatient notes reviewed reports that CTA chest showed extensive R and probably minimal L pulmonary emboli including a large right pulmonary artery embolus. Ground glass infiltrates consistent with hx of COVID 19. Negative Dopplers. Echo: EF >65%, normal wall thickness, and wall motion, mild mitral and aortic valve regurge Present on admission with shortness of breath, tachycardia and tachypneic CTA chest: Extensive bilateral pulmonary embolus. There is a small pulmonary infarct at the right lung base. Trace right pleural effusion. BLE venous Doppler: Deep venous thrombus within the right popliteal and posterior tibial veins and left common femoral vein. Echo showed RV failure and severe pulmonary hypertension negative COVID-19 PCR, troponin 0.06, BNP: 2769, negative procalcitonin Continue IV heparin drip Pulmonary on board as per pulm if pt deteriorates with decreasing blood pressure tachycardia or increase oxygen requirement, could consider systemic thrombolysis Will need repeat CT scan in 3 months for follow-up of the pulmonary infarct Will need repeat echo in 3 to 4 months to ensure his PA pressures are decreasing. This is his second blood clot, probably will need lifelong anticoagulant Continue oxygen supplement we will monitor closely in telemetry (3) Abscess of left hip: Plan: Infection of prosthetic total hip joint: Probable infection of the left total hip arthroplasty. H/O elective left hip replacement on 07/04/2021 at [facility] by Dr. Bob Salas. Developed redness and swelling at incision site, fever. Culture of discharge obtained+Proteus. He was seen by Ortho 07/26/2021 and it is reported ultrasound showed cellulitis without fluid collection. He was started on IV Zosyn Left hip CT on 08/03 showed Status post total left hip arthroplasty. 7.1 x 2.8 cm rim-enhancing fluid collection anterior to the arthroplasty. This extends to the hardware, bone and joint space and is suggestive of an abscess. Deep venous thrombus within the left common femoral vein. Lucency within the superolateral left acetabulum. This could reflect a nondisplaced fracture. Ortho on board Elevated ESR and CRP Recommend to transfer to tertiary care center since no one from the group has credential to perform an anterior hip procedure approach Case discussed with Hospitalist Dr. Shoemaker from [facility] that accepted the patient on transfer (Waiting for bed) Continue IV antibiotic with Zosyn and Vanco for now Continue tramadol, Tylenol as needed pain Elevated troponin Mostly due to the large extensive PE troponin: 0.06 then dropped to 0.04 Echo showed no LV wall motion abnormality with ejection fraction 60 to 65% Currently on IV heparin drip due to PE and DVT Denies any chest pain Diarrhea Patient reports loose stools Obtain C. difficile and stool cultures HTN Continue metoprolol succinate, Lasix Dyslipidemia Continue atorvastatin ANKITA Continue CPAP at bedtime Hypothyroidism Continue levothyroxine DVT Prophylaxis On IV heparin drip for PE/DVT Full code as per discussion with pt Follows with Dr Fredo Varghese for routine care Disposition Waiting for bed to transfer to [place] Admission and Anticipated Discharge Date Admission Date: August 03, 2021 Subjective Patient was seen and examined for follow-up of shortness of breath and left hip infection Lying in bed no acute distress Patient said that he felt a little better today He continues to require 2L NC oxygen supplement He was accepted to transfer to [place], but waiting for bed Patient denies any chest pain, palpitation, dizziness, and fever. Review of Systems Review of Systems: All systems reviewed & are unremarkable except as noted in Subjective Physical Exam Physical Exam: General- No acute distress Head- atraumatic Eyes- PERRL, EOMI, ENT- oropharynx clear Neck- supple, no JVD Lungs- +diminished BS Heart- regular rhythm; no murmur Abdomen- normal bowel sounds, soft, nontender Extremities- no calf tenderness, Anterior hip with surgical incision without significant erythema or warmth, + induration, no significant tenderness to palpation, bilateral lower extremities with edema, distal pulses palpable Neuro- alert, oriented x 3; PERRL, EOMI; no facial palsy; no dysarthria Skin- warm & dry Results & Data Results & Data ([facility]) Vital Signs (Past 12 Hours) Vital Signs Temp Pulse Pulse Resp BP Pulse Ox 08/05/21 19:05 36.6 C 79 16 111/75 96 08/05/21 15:48 79 08/05/21 15:35 36.9 C 86 18 94/63 L 95 08/05/21 11:43 36.8 C 98 H 16 110/70 95 (1) Deep vein thrombosis (DVT) of both lower extremities Affected thrombotic vein of extremity: unspecified vein of extremity Chronicity: acute Qualified Code(s): I82.403 - Acute embolism and thrombosis of unspecified deep veins of lower extremity, bilateral
[2021-08-05] MEDS: ATORVASTATIN 10 MG TAB PO SCH (21:02)
[2021-08-05] MEDS: ESZOPICLONE 1 MG TAB PO SCH (22:58)
[2021-08-06] MEDS: LEVOTHYROXINE SODIUM 25 MCG TABLET PO SCH (05:35)
[2021-08-06] MEDS: PIPERACILLIN/TAZOBACTAM 4.5 GM in DEXTROSE 5% 100 ML IV SCH ×2 (05:35→14:50)
[2021-08-06] MEDS: HEPARIN SODIUM/DEXTROSE 25,000 UNITS/500 ML BAG IV SCH (05:36)
[2021-08-06 07:07] LABS: Creatinine Clr Calc Pharmacy 78.7 ml/min; Est GFR (African American) 96.7 ml/min; Est GFR (Non-African American) 83.5 ml/min
[2021-08-06] MEDS: VANCOMYCIN HCL 1,250 MG in SODIUM CHLORIDE 0.9% 250 ML IV SCH (08:01)
[2021-08-06] MEDS: METOPROLOL SUCC 50MG EXT REL TAB PO SCH (08:02)
[2021-08-06] MEDS: ASPIRIN 81 MG ECTAB PO SCH (08:02)
[2021-08-06] MEDS: PANTOprazole 40 MG TAB PO SCH (08:02)
[2021-08-06] MEDS: FUROSEMIDE 40 MG TAB PO SCH (08:02)
[2021-08-06] MEDS: FERROUS SULFATE 325 MG TAB PO SCH (08:02)
[2021-08-06 08:09] LABS: Partial Thromboplastin Ratio 1.8
[2021-08-06 08:18] LABS: Partial Thromboplastin Time 48.4 Seconds (21.0-31.0)
--- NOTE | 2021-08-06 19:01 | Hospitalist Progress Note ---
Date of Service August 06, 2021 Assessment & Plan (1) Pulmonary embolism and infarction: (2) Deep vein thrombosis (DVT) of both lower extremities: Plan: Patient is 61-year-old male with PMH cerebral palsy, HTN, GERD, ANKITA, hypothyroidism, depression, H/O COVID-19 and PE in 09/2020 presented to ER with complaint of shortness of breath x several days. H/O left hip replacement on 07/04/2021 Patient with history bilateral PE and COVID-19 pneumonia in 09/2020. Outpatient notes reviewed reports that CTA chest showed extensive R and probably minimal L pulmonary emboli including a large right pulmonary artery embolus. Ground glass infiltrates consistent with hx of COVID 19. Negative Dopplers. Echo: EF >65%, normal wall thickness, and wall motion, mild mitral and aortic valve regurge Present on admission with shortness of breath, tachycardia and tachypneic CTA chest: Extensive bilateral pulmonary embolus. There is a small pulmonary infarct at the right lung base. Trace right pleural effusion. BLE venous Doppler: Deep venous thrombus within the right popliteal and posterior tibial veins and left common femoral vein. Echo showed RV failure and severe pulmonary hypertension negative COVID-19 PCR, troponin 0.06, BNP: 2769, negative procalcitonin Continue IV heparin drip Pulmonary on board as per pulm if pt deteriorates with decreasing blood pressure tachycardia or increase oxygen requirement, could consider systemic thrombolysis Will need repeat CT scan in 3 months for follow-up of the pulmonary infarct Will need repeat echo in 3 to 4 months to ensure his PA pressures are decreasing. This is his second blood clot, probably will need lifelong anticoagulant Continue oxygen supplement we will monitor closely in telemetry (3) Abscess of left hip: Plan: Infection of prosthetic total hip joint: Probable infection of the left total hip arthroplasty. H/O elective left hip replacement on 07/04/2021 at [facility] by Dr. Bob Salas. Developed redness and swelling at incision site, fever. Culture of discharge obtained+Proteus. He was seen by Ortho 07/26/2021 and it is reported ultrasound showed cellulitis without fluid collection. He was started on IV Zosyn Left hip CT on 08/03 showed Status post total left hip arthroplasty. 7.1 x 2.8 cm rim-enhancing fluid collection anterior to the arthroplasty. This extends to the hardware, bone and joint space and is suggestive of an abscess. Deep venous thrombus within the left common femoral vein. Lucency within the superolateral left acetabulum. This could reflect a nondisplaced fracture. Ortho on board Elevated ESR and CRP Recommend to transfer to tertiary care center since no one from the group has credential to perform an anterior hip procedure approach Case discussed with Hospitalist Dr. Shoemaker from [facility] that accepted the patient on transfer (Waiting for bed) Continue IV antibiotic with Zosyn and Vanco for now Continue tramadol, Tylenol as needed pain Elevated troponin Mostly due to the large extensive PE troponin: 0.06 then dropped to 0.04 Echo showed no LV wall motion abnormality with ejection fraction 60 to 65% Currently on IV heparin drip due to PE and DVT Denies any chest pain Diarrhea Patient reports loose stools Obtain C. difficile and stool cultures HTN Continue metoprolol succinate, Lasix Dyslipidemia Continue atorvastatin ANKITA Continue CPAP at bedtime Hypothyroidism Continue levothyroxine DVT Prophylaxis On IV heparin drip for PE/DVT Full code as per discussion with pt Follows with Dr Fredo Varghese for routine care Disposition Waiting for bed to transfer to [place] Admission and Anticipated Discharge Date Admission Date: August 03, 2021 Subjective Patient was seen and examined for follow-up of shortness of breath and left hip infection Lying in bed no acute distress Patient said that he continues to feel better today He continues to require 2L NC oxygen supplement He accepted to transfer to [place] He had a bed last night but was not able to find transport, unfortunately the bed was given to another patient Patient denies any chest pain, palpitation, dizziness, and fever. Review of Systems Review of Systems: All systems reviewed & are unremarkable except as noted in Subjective Physical Exam Physical Exam: General- No acute distress Head- atraumatic Eyes- PERRL, EOMI, ENT- oropharynx clear Neck- supple, no JVD Lungs- +diminished BS Heart- regular rhythm; no murmur Abdomen- normal bowel sounds, soft, nontender Extremities- no calf tenderness, Anterior hip with surgical incision without significant erythema or warmth, + induration, no significant tenderness to palpation, bilateral lower extremities with edema, distal pulses palpable Neuro- alert, oriented x 3; PERRL, EOMI; no facial palsy; no dysarthria Skin- warm & dry Results & Data Results & Data ([facility]) Vital Signs (Past 12 Hours) Vital Signs Temp Pulse Pulse Resp BP Pulse Ox 08/06/21 17:00 73 08/06/21 15:52 36.6 C 78 19 113/75 97 08/06/21 11:31 36.6 C 71 20 116/77 95 08/06/21 07:20 36.6 C 77 19 115/57 L 95 08/06/21 07:11 75 (1) Deep vein thrombosis (DVT) of both lower extremities Affected thrombotic vein of extremity: unspecified vein of extremity Chronicity: acute Qualified Code(s): I82.403 - Acute embolism and thrombosis of unspecified deep veins of lower extremity, bilateral
--- NOTE | 2021-08-06 20:57 | Discharge Summary ---
Date of Service August 06, 2021 Admission HPI Per Admitting Provider Patient is 61-year-old male with PMH cerebral palsy, HTN, GERD, ANKITA, hypothyroidism, depression, H/O COVID-19 and PE in 09/2020 presented to ER with complaint of shortness of breath. Patient with history elective left hip replacement on 07/04/2021 at [facility] by Dr. Bob Salas. He was discharged 07/08/2021 to [facility] for rehab and is on aspirin 81 mg twice daily for VTE prophylaxis. Patient developed redness and swelling at incision site and is reported patient had fever. Superficial culture of discharge obtained and was positive for Proteus. He was seen by Ortho 07/26/2021 and it is reported ultrasound showed cellulitis without fluid collection. He was started on IV Zosyn. Reports bilateral leg edema. 2 days ago patient with increased weakness, fever and multiple loose stools. He had had negative COVID- 19 testing and negative chest x-ray. Patient states last 3 days been short of breath and has had clear productive cough. Denies diaphoresis, N/V, melena, hematochezia, hemoptysis, CERDA, dizziness, syncope, vision changes, neck pain, CP, palpitations, sore throat, choking, otalgia, rhinorrhea, abdominal pain, paresthesias, weakness, extremity weakness, other rashes, urinary symptoms. In ER patient afebrile, tachycardic, tachypneic, BP stable, oxygen sats noted to drop to 89% on room air up to 94% on 2 L via nasal cannula. WBC: 12, negative COVID-19 PCR, troponin 0.06, BNP: 2769, negative pro calcitonin CTA chest: Extensive bilateral pulmonary embolus. There is a small pulmonary infarct at the right lung base. Trace right pleural effusion. BLE venous Doppler: Deep venous thrombus within the right popliteal and posterior tibial veins and left common femoral vein. Left hip CT: Status post total left hip arthroplasty. 7.1 x 2.8 cm rim-enhancing fluid collection anterior to the arthroplasty. This extends to the hardware, bone and joint space and is suggestive of an abscess. Deep venous thrombus within the left common femoral vein. Lucency within the superolateral left acetabulum. This could reflect a nondisplaced fracture. In ER IV heparin was started Admission Exam Per Admitting Provider General: +tachypneic, obese Head: normocephalic, atraumatic Eyes: PERRL, EOM's intact, conjunctiva non-injected, anicteric ENT: normal inspection external ears, nose, mucous membranes moist Neck: supple, trachea midline Lungs: clear, +tachypneic - respirations 28, 94% on 2L O2 via NC. Diminished breath sounds CV: RRR, no murmur, + bilateral lower extremity edema Abd: normal BS, soft, non-tender Ext: no cyanosis, LLE: Anterior hip with surgical incision without significant erythema or warmth, + induration, no significant tenderness to palpation, bilateral lower extremities with edema, distal pulses palpable Neuro: A&O x 3, no focal deficits noted, normal affect Skin: warm, dry Principal Diagnosis Pulmonary embolism and infarction: Deep vein thrombosis (DVT) of both lower extremities: Infection of prosthetic total hip joint: Elevated troponin HTN Dyslipidemia ANKITA Hypothyroidism Discharge Exam General- No acute distress Head- atraumatic Eyes- PERRL, EOMI, ENT- oropharynx clear Neck- supple, no JVD Lungs- +diminished BS Heart- regular rhythm; no murmur Abdomen- normal bowel sounds, soft, nontender Extremities- no calf tenderness, Anterior hip with surgical incision without significant erythema or warmth, + induration, no significant tenderness to palpation, bilateral lower extremities with edema, distal pulses palpable Neuro- alert, oriented x 3; PERRL, EOMI; no facial palsy; no dysarthria Skin- warm & dry Discharge Data Allergies Allergy/AdvReac Type Severity Reaction Status Date / Time No Known Allergies Allergy Verified 08/03/21 14:39 Consultations 08/03/21 17:25 ED Decision to Admit Stat 08/03/21 18:35 Consult Orthopedic Surgery Routine 08/04/21 08:00 Consult Pulmonology Routine 08/05/21 17:46 Burn CD for patient Routine Ordered Studies 08/03/21 15:06 CT angio chest PE protocol Stat CT hip LT w con Stat US venous doppler LE BI Stat XR hip LT min 2V CLINICAL HISTORY: question of loosening/ acetabular fx. Left hip pain. COMPARISON STUDY: Left hip CT 08/03/2021. FINDINGS: There is a left total hip arthroplasty. The hardware appears intact. No fracture or dislocation within the left hip. No abnormal periprosthetic lucency. Soft tissues are unremarkable. IMPRESSION: 1. Left total arthroplasty. The hardware appears intact. 2. No definite fractures within the left hip. ACT 112: Negative or not required by law. Electronically signed by: Dominick Stevens M.D. 08/04/2021 6:37 PM Dictated: 08/04/211835Transcribed: 08/04/211835 BILATERAL LOWER EXTREMITY VENOUS DOPPLER CLINICAL HISTORY: swelling, recent surgery COMPARISON STUDY: No previous studies for comparison. TECHNIQUE: Sonography of the deep venous system of the bilateral lower extremities was performed. Compression and augmentation were evaluated. FINDINGS: This exam is compromised by suboptimal penetration. Note is made of deep venous thrombus within the right popliteal vein as well as the right posterior tibial vein. Deep venous thrombus within the left common femoral vein is noted. IMPRESSION: Deep venous thrombus within the right popliteal and posterior tibial veins and left common femoral vein. ACT 112: Negative or not required by law. Electronically signed by: Robbie Perez M.D. 08/03/2021 5:52 PM Dictated: 08/03/211749Transcribed: 08/03/211749 CT OF THE LEFT HIP WITH CONTRAST CLINICAL HISTORY: Left hip pain. Recent surgery. Being treated for abscess. COMPARISON STUDY: No previous studies for comparison. TECHNIQUE: Axial images of the left hip were obtained following intravenous injection of 116 cc of Optiray 320 IV. Sagittal and coronal reconstructions were viewed. Automated exposure control was utilized for the study. A dose lowering technique was utilized adhering to the principles of ALARA. FINDINGS: Left hip arthroplasty is noted. Hardware is intact. There is a lucency within the superolateral left acetabulum. Note is made of a fluid and gas containing collection along the anterior aspect of the hip arthroplasty which measures 7.1 x 2.8 cm. This extends to the bone and the hardware as well as the joint space. This extends into the left rectus femoris. This demonstrates peripheral enhancement. No additional fluid collections are present. Note is made of deep venous thrombus within the left common femoral vein. No significant abnormality within visualized portions of the left hemipelvis is identified. IMPRESSION: 1. Status post total left hip arthroplasty. 7.1 x 2.8 cm rim-enhancing fluid collection anterior to the arthroplasty. This extends to the hardware, bone and joint space and is suggestive of an abscess. 2. Deep venous thrombus within the left common femoral vein. 3. Lucency within the superolateral left acetabulum. This could reflect a nondisplaced fracture. ACT 112: Negative or not required by law. Electronically signed by: Robbie Perez M.D. 08/03/2021 4:51 PM Dictated: 08/03/211642Transcribed: 08/03/211644 CT ANGIOGRAM OF THE CHEST CLINICAL HISTORY: Cough. Dyspnea. COMPARISON STUDY: Chest x-ray dated 08/03/2021 TECHNIQUE: Following the IV administration of 116 cc of Optiray 320, CT angiogram of the chest was performed from the upper abdomen to the thoracic inlet utilizing the pulmonary embolus protocol. Images are reviewed in the axial, sagittal, and coronal planes. 3-D MIPS images are created and assessed. IV contrast was administered without complication. A dose lowering technique was utilized adhering to the principles of ALARA. CT DOSE: 1454.46 mGy.cm FINDINGS: Thyroid: Imaged portions of the thyroid gland are normal in size and attenuation. Thoracic aorta: The thoracic aorta is normal in caliber and demonstrates standard 3-vessel arch anatomy. No dissection is seen. Pulmonary vasculature: The pulmonary trunk is normal in caliber. There is a large thrombus within the right main pulmonary artery. This extends into the right upper, middle, and lower lobe pulmonary arteries. Segmental and subsegmental pulmonary emboli are seen within the right upper, middle, and lower lobes. There is thrombus within the distal left main pulmonary artery. This extends into the left upper and left lower lobe pulmonary arteries into segmental and subsegmental branches. Heart: The heart is normal in size and without pericardial effusion. There are scattered coronary artery calcifications. Lungs and pleural spaces: Evaluation of the lung parenchyma is significantly degraded by motion artifact. The trachea and central airways are clear. A wedge- shaped subpleural opacity at the right lung base on image #100 likely represents a pulmonary infarct. Mild atelectasis is noted at the left lung base. There is t race right pleural effusion. Mediastinum: There is no mediastinal lymphadenopathy. Dalila: Clear. Axillae: There is no axillary lymphadenopathy. Upper abdomen: There is a small hiatal hernia. Numerous gallstones are noted. Skeletal structures: No lytic or blastic bony lesions are seen. IMPRESSION: 1. Extensive bilateral pulmonary embolus as above. 2. There is a small pulmonary infarct at the right lung base. 3. Trace right pleural effusion. 4. Cholelithiasis. 5. Additional findings as above. ACT 112: Negative or not required by law. Electronically signed by: Behzad Gregorio M.D. 08/03/2021 4:43 PM Dictated: 08/03/21 1639Transcribed: 08/03/21 1639 XR chest 1V portable CLINICAL HISTORY: Shortness of breath. COMPARISON STUDY: Chest radiograph May 18, 2019. FINDINGS: Lung volumes are normal. Lungs are clear. There is no pneumothorax or pleural effusion. There is mild enlargement of the cardiac silhouette. Mediastinal contours are normal. There is no evidence for pulmonary edema. IMPRESSION: No acute cardiopulmonary findings. ACT 112: Negative or not required by law. Electronically signed by: Robbie Perez M.D. 08/03/2021 1:44 PM Dictated: 08/03/21 1343Transcribed: 08/03/21 1343 Hospital Course (1) Pulmonary embolism and infarction: (2) Deep vein thrombosis (DVT) of both lower extremities: Patient is 61-year-old male with PMH cerebral palsy, HTN, GERD, ANKITA, hypothyroidism, depression, H/O COVID-19 and PE in 09/2020 presented to ER with complaint of shortness of breath x several days. H/O left hip replacement on 07/04/2021 Patient with history bilateral PE and COVID-19 pneumonia in 09/2020. Outpatient notes reviewed reports that CTA chest showed extensive R and probably minimal L pulmonary emboli including a large right pulmonary artery embolus. Ground glass infiltrates consistent with hx of COVID 19. Negative Dopplers. Echo: EF >65%, normal wall thickness, and wall motion, mild mitral and aortic valve regurge Present on admission with shortness of breath, tachycardia and tachypneic CTA chest: Extensive bilateral pulmonary embolus. There is a small pulmonary infarct at the right lung base. Trace right pleural effusion. BLE venous Doppler: Deep venous thrombus within the right popliteal and posterior tibial veins and left common femoral vein. Echo showed RV failure and severe pulmonary hypertension negative COVID-19 PCR, troponin 0.06, BNP: 2769, negative procalcitonin Continue IV heparin drip Pulmonary on board as per pulm if pt deteriorates with decreasing blood pressure tachycardia or increase oxygen requirement, could consider systemic thrombolysis Will need repeat CT scan in 3 months for follow-up of the pulmonary infarct Will need repeat echo in 3 to 4 months to ensure his PA pressures are decreasing. This is his second blood clot, probably will need lifelong anticoagulant Continue oxygen supplement we will monitor closely in telemetry (3) Abscess of left hip: Infection of prosthetic total hip joint: Probable infection of the left total hip arthroplasty. H/O elective left hip replacement on 07/04/2021 at [facility] by Dr. Bob Salas. Developed redness and swelling at incision site, fever. Culture of discharge obtained+Proteus. He was seen by Ortho 07/26/2021 and it is reported ultrasound showed cellulitis without fluid collection. He was started on IV Zosyn Left hip CT on 08/03 showed Status post total left hip arthroplasty. 7.1 x 2.8 cm rim-enhancing fluid collection anterior to the arthroplasty. This extends to the hardware, bone and joint space and is suggestive of an abscess. Deep venous thrombus within the left common femoral vein. Lucency within the superolateral left acetabulum. This could reflect a nondisplaced fracture. Ortho on board Elevated ESR and CRP Recommend to transfer to tertiary care center since no one from the group has credential to perform an anterior hip procedure approach Case discussed with Hospitalist Dr. Shoemaker from [facility] that accepted the patient on transfer (Waiting for bed) Continue IV antibiotic with Zosyn and Vanco for now Continue tramadol, Tylenol as needed pain Elevated troponin Mostly due to the large extensive PE troponin: 0.06 then dropped to 0.04 Echo showed no LV wall motion abnormality with ejection fraction 60 to 65% Currently on IV heparin drip due to PE and DVT Denies any chest pain Diarrhea Patient reports loose stools Obtain C. difficile and stool cultures HTN Continue metoprolol succinate, Lasix Dyslipidemia Continue atorvastatin ANKITA Continue CPAP at bedtime Hypothyroidism Continue levothyroxine DVT Prophylaxis On IV heparin drip for PE/DVT Full code as per discussion with pt Follows with Dr Fredo Varghese for routine care Disposition Waiting for bed to transfer to [place] Total Time Total Time Spent Total Time Spent (In Minutes): 40 minutes Discharge Plan Discharge Items Patient Disposition: Transfer Acute Care Hospital Reason For Visit: PE Discharge Diagnosis: Pulmonary embolism and infarction: Deep vein thrombosis (DVT) of both lower extremities: Infection of prosthetic total hip joint: Elevated troponin HTN Dyslipidemia ANKITA Hypothyroidism Activity: Resume your previous activity Non-emergency contact: Primary Care Provider and Surgeon Call non-emergency contact if: you have any medication questions and your temperature is above 101 Follow-up/Referrals: Radha Dyson MD [Primary Care Provider] - Diet: Heart Healthy Addtl Attending Provider Instructions: Transfer to [facility] Accepting physician Dr. Shoemaker Please consult orthopedic evaluation for the Infection of prosthetic total hip joint Continue IV heparin drip Continue IV abx with Zosyn and Vanco for now You will need a repeat CT scan chest in 3 months to access the pulmonary infarct You will need repeat echo in 3 to 4 months to ensure the PA pressures are decreasing. Continue oxygen supplement Pending Studies at Discharge: No Stand-Alone Forms: My [facility] Skilled Items Patient informed of condition?: Yes DNR: No Discharge Level of Care: Other Communicable Disease: No Discharge Prognosis: Stable Lines: Peripheral IV Urinary Catheter: No Medications and DC Order Prescriptions: Continued metoprolol succinate 100 mg Tablet Extended Release 24 Hr 100 mg PO QAM RF: 0 levothyroxine [Synthroid] 25 mcg Tablet 25 mcg PO QAM RF: 0 ferrous sulfate [iron] 325 mg (65 mg iron) Tablet 325 mg PO BID RF: 0 omeprazole 20 mg Tablet,Delayed Release (Dr/Ec) 40 mg PO QAM RF: 0 atorvastatin 10 mg Tablet 10 mg PO PM RF: 0 aspirin 81 mg Tablet,Delayed Release (Dr/Ec) 81 mg PO BID RF: 0 eszopiclone 1 mg tablet 1 mg PO HS RF: 0 furosemide 40 mg Tablet 40 mg PO QAM RF: 0 piperacillin-tazobactam [Zosyn] 3.375 gram Recon Soln 3.375 g IV Q12H RF: 0 polyethylene glycol 3350 [Miralax] 17 gram/dose Powder 17 g PO QAM RF: 0 sodium chloride 0.9 % (flush) [Normal Saline Flush] Syringe 10 ml IV Q12H RF: 0 tramadol 50 mg Tablet 50 mg PO Q6H PRN (Reason: Pain) RF: 0 Discharge Orders: Discharge Order (Routine); Ordered 08/06/21 Ordered By: Fletcher Joseph Admission Data Admit Date/Time: 08/03/21 18:32 Attending Provider: Cara Clemente Admit Provider: Cara Clemente Primary Care Provider: Radha Dyson Other Providers: Maldonado Johnston ; Cara Clemente ; Sanchez Tyson ; Simon Pacheco Other Interventions: Discharge Summary Assessment (RN) Last Done: 08/06/21 20:11
[2021-08-07] MEDS ORDERED: VANCOMYCIN TROUGH ONE (08:30)
== END 2021-08-06 21:24 | disposition short-term general hospital (02) | DRG 559 ==
LOC: ED 12:47 → 2S 18:32